=== PATIENT | male | born 1975 | race Caucasian/White ===

== ENCOUNTER 2016-11-26 17:11 | Emergency (ER) | payer SELFPAY ==
[2016-11-26 17:30] VITALS: RESP 18
--- NOTE | 2016-11-26 18:55 | ED ---
General Adult HPI - General Chief complaint: ENT Stated complaint: left ear pain Time Seen by Provider: 11/26/16 18:44 Source: patient, RN notes reviewed Mode of arrival: ambulatory Limitations: no limitations - History of Present Illness Initial comments: This is a 41-year-old male presents with left ear pain 5 days. Patient states the ear pain has progressively gotten worse and he has some diminished hearing to the left side. Patient denies any fever/chills, cough, congestion, sore throat or sick contacts. Patient has been trying orsw-awp-ghwylgm Tylenol and tblp-doq-iqclogu eardrops but this has not helped his symptoms. Patient also complains of some mild dizziness and nausea that started today at work along with the ear pain. Patient denies any recent fever, chills, shortness breath, chest pain, abdominal pain, nausea/vomiting/diarrhea, back pain, numbness, tingling, hematuria, headache, or visual changes, or any other complaints. - Related Data Previous Rx's Medication Instructions Recorded Amoxicillin 1,000 mg PO Q8H 7 Days 11/26/16 Allergies Allergy/AdvReac Type Severity Reaction Status Date / Time No Known Allergies Allergy Verified 11/26/16 18:44 Review of Systems ROS Statement: Those systems with pertinent positive or pertinent negative responses have been documented in the HPI. ROS Other: All systems not noted in ROS Statement are negative. Past Medical History Past Medical History: No Reported History History of Any Multi-Drug Resistant Organisms: None Reported Past Surgical History: Hernia Repair, Orthopedic Surgery Past Psychological History: No Psychological Hx Reported Smoking Status: Never smoker Past Alcohol Use History: None Reported Past Drug Use History: None Reported General Exam - General Exam Comments Initial Comments: General: The patient is awake and alert, in no distress, and does not appear acutely ill. Eye: Pupils are equal, round and reactive to light, extra-ocular movements are intact. No nystagmus. There is normal conjunctiva bilaterally. No signs of icterus. Ears: Left tympanic membrane erythematous and dull consistent with otitis media. Right tympanic membrane pink and pearly with intact cone of light. Normal external ear canals Nose: Nasal turbinates pink and moist Mouth and throat: There are moist mucous membranes and no oral lesions. Neck: The neck is supple, there is no tenderness or JVD. Cardiovascular: There is a regular rate and rhythm. No murmur, rub or gallop is appreciated. Respiratory: Lungs are clear to auscultation, respirations are non-labored, breath sounds are equal. No wheezes, stridor, rales, or rhonchi. Musculoskeletal: Normal ROM, no tenderness. Strength 5/5. Sensation intact. Radial pulses equal bilaterally 2+. Neurological: A&O x 3. CN II-XII intact, There are no obvious motor or sensory deficits. Coordination appears grossly intact. Speech is normal. Skin: Skin is warm and dry and no rashes or lesions are noted. Psychiatric: Cooperative, appropriate mood & affect, normal judgment. Limitations: no limitations Course Vital Signs 11/26/16 17:28 Temperature 97.8 F Pulse Rate 63 Respiratory 18 Rate Blood Pressure 143/78 O2 Sat by Pulse 98 Oximetry Medical Decision Making - Medical Decision Making This Is a 41-year-old male presents with left ear pain 5 days. On physical exam Left tympanic membrane erythematous and dull consistent with otitis media. Right tympanic membrane pink and pearly with intact cone of light. Normal external ear canals. Patient is afebrile in the EC. I discussed the patient will be given a course of amoxicillin for otitis media. Discussed that his hearing should improve as the infection improves. I discussed close follow-up with his primary care physician. I discussed return parameters. I discussed continued use of Tylenol or Motrin as needed for any pain or fever symptoms. Patient was offered a prescription for Zofran for nausea but patient refused this.Discussed that patient should follow up with PCP in one to 2 days or return to the EC for any worsening symptoms or for any further concerns. E butterfield and who was also present in the room where receptive to this plan and patient will be discharged home. Disposition Clinical Impression: Otitis media Disposition: HOME SELF-CARE Condition: Good Instructions: Otitis Media (ED) Additional Instructions: Please finish entire course of antibiotics. Please continue use of Tylenol or Motrin as needed for any pain or fever symptoms. Please use medication as discussed. Please follow-up with family doctor in the next 2 days of symptoms have not improved. Please return to emergency room if the symptoms increase or worsen or for any other concerns. Prescriptions: Amoxicillin 1,000 mg PO Q8H 7 Days Referrals: None,Stated [Primary Care Provider] - 1-2 days Sylvie Garcia MD [REFERRING] - 1-2 days Hedy Feliz MD [STAFF PHYSICIAN] - 1-2 days Alfa Mcmahon III, MD [STAFF PHYSICIAN] - 1-2 days Time of Disposition: 18:53
[2016-11-26 19:09] VITALS: BP 147/89; PULSE 76; TEMP 98.3
== END 2016-11-26 19:05 | disposition home or self-care (01) ==
LOC: EC 17:11
DX: H66.92 Otitis media, unspecified, left ear (principal)
CPT/HCPCS: 99283

== ENCOUNTER 2017-12-24 18:24 | Emergency (ER) | payer SELFPAY ==
[2017-12-24] MEDS ORDERED: ACETAMINOPHEN TAB 325 MG TAB PO STA (19:15)
[2017-12-24] MEDS ORDERED: IBUPROFEN 600 MG TAB PO STA (19:15)
[2017-12-24 19:17] VITALS: RESP 18
[2017-12-24] MEDS ORDERED: DIPH,PERTUS(ACELL)TETVAC-LF 0.5 ML VIAL IM ONE (19:17)
--- NOTE | 2017-12-24 19:49 | XR ---
EXAMINATION TYPE: XR knee complete LT DATE OF EXAM: 12/24/2017 COMPARISON: NONE HISTORY: Knee pain TECHNIQUE: 3 views FINDINGS: I see no fracture nor dislocation. Joint spaces are normal. There is evidence of a mild kne e joint effusion. IMPRESSION: No fracture seen. Knee joint effusion.
--- NOTE | 2017-12-24 19:52 | ED ---
Fall HPI - General Stated Complaint: knee injury Time Seen by Provider: 12/24/17 19:09 Source: patient Mode of arrival: ambulatory - History of Present Illness Initial Comments: 42-year-old male patient percents to the emergency department today for complaints of left knee pain and swelling. Patient states Saturday evening he was walking up into a motorcycle trailer when he fell twisting and landing on his knee. He states that he has been having significant pain since. States that he is barely able to put pressure on it without causing significant pain. States that he has a lot of swelling to the lateral aspect of the knee. He states he has injured the knee in the past. He denies any previous surgeries. He denies hitting his head or losing consciousness with the fall. He states he is having some tingling in his toes with this. Patient denies any headache, neck pain, back pain, chest pain, shortness of breath, dizziness, weakness, abdominal pain, nausea, vomiting, or difficulties with bowel movements or urination. - Related Data Home Medications Medication Instructions Recorded Confirmed Aspirin/Acetaminophen/Caffeine 2 tab PO DAILY PRN 12/24/17 12/24/17 [Excedrin Extra Strength Caplet] Previous Rx's Medication Instructions Recorded Ibuprofen [Motrin] 600 mg PO Q8HR PRN #30 tab 12/24/17 Allergies Allergy/AdvReac Type Severity Reaction Status Date / Time No Known Allergies Allergy Verified 12/24/17 19:39 Review of Systems ROS Statement: Those systems with pertinent positive or pertinent negative responses have been documented in the HPI. ROS Other: All systems not noted in ROS Statement are negative. Past Medical History Past Medical History: No Reported History History of Any Multi-Drug Resistant Organisms: None Reported Past Surgical History: Hernia Repair, Orthopedic Surgery Past Psychological History: No Psychological Hx Reported Smoking Status: Never smoker Past Alcohol Use History: None Reported Past Drug Use History: None Reported General Exam Limitations: no limitations General appearance: alert, in no apparent distress, other (This is a well- developed, well-nourished adult male patient in no acute distress. Vital signs upon presentation are temperature 98.5F, pulse 91, respirations 18, blood pressure 146/89, pulse ox 97% on room air.) Eye exam: Present: normal appearance, PERRL, EOMI. Absent: scleral icterus, conjunctival injection, periorbital swelling ENT exam: Present: normal exam, normal oropharynx, mucous membranes moist Respiratory exam: Present: normal lung sounds bilaterally. Absent: respiratory distress, wheezes, rales, rhonchi, stridor Cardiovascular Exam: Present: regular rate, normal rhythm, normal heart sounds. Absent: systolic murmur, diastolic murmur, rubs, gallop, clicks Extremities exam: Present: full ROM (Patient exhibits full range of motion of the knee, full flexion and full extension however reports increased pain with both), tenderness (Tenderness over the lateral aspect of the left knee.), normal capillary refill, joint swelling (Left knee), other (Patient has significant swelling noted to the left knee especially the lateral aspect. Neurovascular status is intact. Skin is pink, warm, and dry. Cap refills less than 3 seconds. Pedal and Post tibial pulses are 2+ and equal bilaterally.). Absent: normal inspection, pedal edema, calf tenderness Neurological exam: Present: alert, oriented X3, CN II-XII intact Psychiatric exam: Present: normal affect, normal mood Skin exam: Present: warm, dry, intact, normal color. Absent: rash Course Vital Signs 12/24/17 12/24/17 19:14 20:49 Temperature 98.5 F 99 F Pulse Rate 91 85 Respiratory 18 18 Rate Blood Pressure 146/89 137/85 O2 Sat by Pulse 97 98 Oximetry Medical Decision Making - Medical Decision Making 42-year-old male patient presented to the emergency department today for evaluation of left knee pain and swelling. Physical examination did slow swelling to the left knee especially of the left lateral area. Patient did have patellar tenderness and left lateral knee tenderness. He did not have pain with valgus and varus maneuver. Patient is neurovascularly intact. Distal pulses are intact. We did obtain x-ray of the knee 3 views as well as sunrise view. There are negative for any acute fracture or dislocation. We did place patient in an Josemanuel wrap to assist with swelling. He is instructed to take Tylenol Motrin for pain control. Instructed to follow-up with orthopedic physician for further evaluation. He is instructed to return here immediately for any new, worsening, or concerning symptoms. He verbalizes understanding and agrees with this plan. - Radiology Data Radiology results: report reviewed, image reviewed 3 views of the left knee are obtained and show no fracture nor dislocation. Joint spaces are normal. There is evidence of a mild knee joint effusion. Impression by Dr. Almaraz shows no fracture seen. Knee joint effusion. Single view of the left knee was performed. Findings show a single sunrise view of the left knee shows no evidence of patellar fracture. Patellofemoral joint space normal. Impression by Dr. Almaraz shows normal limited exam of the patella. Disposition Clinical Impression: Left knee injury, Knee effusion, left Disposition: HOME SELF-CARE Condition: Good Instructions: Swollen Knee Joint (ED), Knee Pain (ED) Additional Instructions: Follow-up with orthopedics for further evaluation of your knee injury. Use Josemanuel wrap for comfort and support. Take medications as needed for pain control. Follow-up with your primary care physician for recheck in 1-2 days. Return here immediately for any new, worsening, or concerning symptoms. Prescriptions: Ibuprofen [Motrin] 600 mg PO Q8HR PRN #30 tab PRN Reason: Pain Referrals: None,Stated [Primary Care Provider] - 1-2 days Time of Disposition: 20:43
--- NOTE | 2017-12-24 20:34 | XR ---
EXAMINATION TYPE: XR knee limited LT DATE OF EXAM: 12/24/2017 COMPARISON: NONE HISTORY: Pain TECHNIQUE: Single view FINDINGS: A single sunrise view of the left knee shows no evidence of patella fracture. Patellofemora l joint space is normal. IMPRESSION: Normal limited exam of the patella.
[2017-12-24 20:51] VITALS: BP 137/85; PULSE 85; TEMP 99
== END 2017-12-24 20:49 | disposition home or self-care (01) ==
LOC: EC 18:24
DX: S89.92XA Unspecified injury of left lower leg, initial encounter (principal); M25.462 Effusion, left knee; Z23 Encounter for immunization; W01.0XXA Fall on same level from slipping, tripping and stumbling without subsequent striking against object, initial encounter; Y93.01 Activity, walking, marching and hiking
CPT/HCPCS: 90471; 90715; 99283

== ENCOUNTER 2019-01-30 06:01 | Emergency (ER) | payer OTHER ==
[2019-01-30 06:11] VITALS: TEMP 98.1
[2019-01-30] MEDS ORDERED: SODIUM CHLORIDE 0.9% 2,000 ML IV STA (06:15)
[2019-01-30] MEDS ORDERED: KETOROLAC 30 MG/ML 1 ML VIAL IVP STA (06:16)
[2019-01-30] MEDS ORDERED: diphenhydrAMINE 50 MG/ML 1 ML VIAL IVP STA (06:16)
[2019-01-30] MEDS ORDERED: METOCLOPRAMIDE 5 MG/ML 2 ML VIAL IVP STA (06:16)
--- NOTE | 2019-01-30 06:17 | ED ---
Headache HPI - General Chief Complaint: Headache Stated Complaint: Flu,nose bleed, headache Time Seen by Provider: 01/30/19 06:15 Mode of arrival: ambulatory Limitations: no limitations - History of Present Illness Initial Comments: Family is a pleasant 43-year-old gentleman who presents to emergency department this morning for evaluation of headache and generalized malaise. Patient reports that for the past week he's been very and satting intermittent fevers, chills, body aches, nonproductive cough concerned he may have the flu. He states that he has also had a couple unprovoked nosebleeds which is atypical for him. He states he does not have a humidifier anything in the home. He states that this morning he woke up and he felt like he had somewhat of a headache and just felt worn down which prompted him to come to the ER for further evaluation. - Related Data Home Medications Medication Instructions Recorded Confirmed Aspirin/Acetaminophen/Caffeine 2 tab PO DAILY PRN 12/24/17 12/24/17 [Excedrin Extra Strength Caplet] Previous Rx's Medication Instructions Recorded Ibuprofen [Motrin] 600 mg PO Q8HR PRN #30 tab 12/24/17 Allergies Allergy/AdvReac Type Severity Reaction Status Date / Time maple AdvReac Rash/Hives Uncoded 01/30/19 06:12 Review of Systems ROS Statement: Those systems with pertinent positive or pertinent negative responses have been documented in the HPI. ROS Other: All systems not noted in ROS Statement are negative. Past Medical History Past Medical History: No Reported History History of Any Multi-Drug Resistant Organisms: None Reported Past Surgical History: Hernia Repair, Orthopedic Surgery Past Psychological History: Anxiety, Depression Smoking Status: Never smoker Past Alcohol Use History: None Reported Past Drug Use History: None Reported General Exam - General Exam Comments Initial Comments: Physical Exam GENERAL: Patient is well-developed and well-nourished. Patient appears dehydrated on exam HENT: Normocephalic, Atraumatic. EYES: PERRL, EOMI PULMONARY: Unlabored respirations. No audible rales rhonchi or wheezing was noted. CARDIOVASCULAR: There is a regular rate and rhythm without any murmurs gallops or rubs. ABDOMEN: Soft and nontender with normal bowel sounds. SKIN: Skin is clear with no lesions or rashes and otherwise unremarkable. : Deferred NEUROLOGIC: Patient is alert and oriented x3. Moving all extremities spontaneously MUSCULOSKELETAL: Normal extremities with adequate strength and full range of motion. No lower extremity swelling or edema. No calf tenderness. PSYCHIATRIC: Normal psychiatric evaluation. Limitations: no limitations Limitations: no limitations Course Vital Signs 01/30/19 01/30/19 06:09 07:57 Temperature 98.1 F 98.1 F Pulse Rate 76 85 Respiratory 18 16 Rate Blood Pressure 131/105 148/89 O2 Sat by Pulse 97 97 Oximetry Medical Decision Making - Medical Decision Making She was seen and evaluated history is obtained from patient and review of medical record Relatively healthy 43-year-old male flulike illness for 1 week presenting with headache he appears dehydrated and labs and imaging fluids were ordered Labs were unremarkable Influenza is negative Patient was reevaluated after receiving meds and 1 L of IV fluids he reports feeling much better at this time patient's comfortable with the plan for discharge home. All questions pertaining care were answered return parameters were discussed patient was discharged home in stable condition. - Lab Data Result diagrams: 01/30/19 06:45 01/30/19 06:45 Lab Results 01/30/19 01/30/19 01/30/19 Range/Units 06:30 06:45 06:45 WBC 6.1 (3.8-10.6) k/uL RBC 5.14 (4.30-5.90) m/uL Hgb 14.9 (13.0-17.5) gm/dL Hct 42.8 (39.0-53.0) % MCV 83.2 (80.0-100.0) fL MCH 29.1 (25.0-35.0) pg MCHC 34.9 (31.0-37.0) g/dL RDW 14.8 (11.5-15.5) % Plt Count 200 (150-450) k/uL Neutrophils % 67 % Lymphocytes % 22 % Monocytes % 6 % Eosinophils % 3 % Basophils % 1 % Neutrophils # 4.1 (1.3-7.7) k/uL Lymphocytes # 1.4 (1.0-4.8) k/uL Monocytes # 0.3 (0-1.0) k/uL Eosinophils # 0.2 (0-0.7) k/uL Basophils # 0.0 (0-0.2) k/uL Sodium 141 (137-145) mmol/L Potassium 4.2 (3.5-5.1) mmol/L Chloride 108 H (98-107) mmol/L Carbon Dioxide 25 (22-30) mmol/L Anion Gap 8 mmol/L BUN 15 (9-20) mg/dL Creatinine 0.81 (0.66-1.25) mg/dL Est GFR (CKD-EPI)AfAm >90 (>60 ml/min/1.73 sqM) Est GFR (CKD-EPI)NonAf >90 (>60 ml/min/1.73 sqM) Glucose 95 (74-99) mg/dL Calcium 9.2 (8.4-10.2) mg/dL Total Bilirubin 0.7 (0.2-1.3) mg/dL AST 23 (17-59) U/L ALT 31 (21-72) U/L Alkaline Phosphatase 35 L (38-126) U/L Total Protein 7.2 (6.3-8.2) g/dL Albumin 4.1 (3.5-5.0) g/dL Lipase 111 (23-300) U/L Influenza Type A RNA Not Detected (Not Detectd) Influenza Type B (PCR) Not Detected (Not Detectd) Disposition Clinical Impression: Flu-like symptoms, Headache Disposition: HOME SELF-CARE Condition: Stable Instructions (If sedation given, give patient instructions): Sinusitis (ED) Is patient prescribed a controlled substance at d/c from ED?: No Referrals: None,Stated [Primary Care Provider] - 1-2 days
[2019-01-30 06:58] LABS: Basophils % (A) 1 %; Eosinophils # (A) 0.2 k/uL (0-0.7); Eosinophils % (A) 3 %; HCT 42.8 % (39.0-53.0); HGB 14.9 gm/dL (13.0-17.5); Lymphocytes # (A) 1.4 k/uL (1.0-4.8); Lymphocytes % (A) 22 %; MCH 29.1 pg (25.0-35.0); MCHC 34.9 g/dL (31.0-37.0); MCV 83.2 fL (80.0-100.0); Mean Platelet Volume 8.6; Monocytes # (A) 0.3 k/uL (0-1.0); Monocytes % (A) 6 %; Neutrophils # (A) 4.1 k/uL (1.3-7.7); Neutrophils % (A) 67 %; Platelet Count 200 k/uL (150-450); RBC 5.14 m/uL (4.30-5.90); RDW 14.8 % (11.5-15.5); WBC 6.1 k/uL (3.8-10.6)
--- NOTE | 2019-01-30 07:19 | XR ---
EXAMINATION TYPE: XR chest 2V DATE OF EXAM: 01/30/2019 COMPARISON: NONE HISTORY: Pain, flu symptoms TECHNIQUE: Frontal and lateral views of the chest are obtained. FINDINGS: There is no focal air space opacity, pleural effusion, or pneumothorax seen. The cardiac silhouette size is within normal limits. The osseous structures are intact. IMPRESSION: No acute cardiopulmonary process.
[2019-01-30 07:24] LABS: ALT 31 U/L (21-72); AST 23 U/L (17-59); Albumin 4.1 g/dL (3.5-5.0); Alkaline Phosphatase 35 U/L (38-126); Anion Gap 8 mmol/L; Blood Urea Nitrogen 15 mg/dL (9-20); Calcium 9.2 mg/dL (8.4-10.2); Carbon Dioxide 25 mmol/L (22-30); Chloride 108 mmol/L (98-107); Glucose 95 mg/dL (74-99); Lipase 111 U/L (23-300); Potassium 4.2 mmol/L (3.5-5.1); Sodium 141 mmol/L (137-145); Total Bilirubin 0.7 mg/dL (0.2-1.3); Total Protein 7.2 g/dL (6.3-8.2)
[2019-01-30 07:59] VITALS: BP 148/89; PULSE 85; RESP 16
== END 2019-01-30 07:55 | disposition home or self-care (01) ==
LOC: EC 06:01
DX: R51 Headache (principal); R53.81 Other malaise; R05 Cough; R50.9 Fever, unspecified; Z91.048 Other nonmedicinal substance allergy status; Z53.8 Procedure and treatment not carried out for other reasons
CPT/HCPCS: 36415; 80053; 83690; 85025; 87502; 71046; 99284; 96374; 96361; J1885

== ENCOUNTER 2022-04-06 06:20 | Day surgery (SDC) | payer BC, OTHER ==
[2022-04-04 15:42] VITALS: BMI 33.0
[~2022-04-06 06:20] MED LIST: LACTATED RINGERS 1,000 ML IV SCH; LIDOCAINE 1% (10MG/ML) FOR IV START INTRADERMA PRN
[2022-04-06 06:54] VITALS: TEMP 98.1
[2022-04-06] MEDS ORDERED: PROPOFOL 10 MG/ML 20 ML VIAL IV ONE (07:25)
[2022-04-06] MEDS ORDERED: MIDAZOLAM 2 MG/2 ML VIAL ONE (07:25)
[2022-04-06] MEDS ORDERED: fentaNYL (PF) 50 MCG/ML 2 ML AMP ONE (07:25)
[2022-04-06] MEDS ORDERED: LIDOCAINE 2% INJ 20 MG/ML (2 ML VIAL) ONE (07:25)
--- NOTE | 2022-04-06 07:42 | P.PCN ---
Date of Procedure: 04/06/22 Procedure(s) Performed: Brief history: Patient is a pleasant 47-year-old white male scheduled for an elective upper endoscopy as well as colonoscopy as a part of evaluation of intermittent nausea vomiting for the last several years duration. Symptoms typically happen in the evening after dinner. He denies any heartburn. No dysphagia or odynophagia. He is also scheduled for colonoscopy as a part of screening for colorectal neoplasia Procedure performed: Esophagogastroduodenoscopy with biopsy Colonoscopy Preoperative diagnosis: Intermittent nausea vomiting Screening for colorectal neoplasia Anesthesia: MAC Procedure: After informed consent was obtained from the patient was brought into the en doscopy unit and IV sedation was administered by anesthesia under continuous monitoring. Initially upper endoscopy was done. The Olympus GF 160 video endoscope was inserted inserted into the mouth and esophagus intubated without any difficulty and was gradually advanced into the stomach and duodenum and carefully examined. The bulb and second part of the duodenum appeared normal. Biopsies were done from the duodenum to rule out celiac disease. The scope was then withdrawn into the stomach adequately insufflated with air and upon careful examination the antrum had mild mottling of the mucosa in the prepyloric area which was biopsied. The body, cardia and fundus appeared normal. The scope was then withdrawn into the esophagus. The GE junction was located at 40 cm to the incisors. It appeared irregular with no erythema erosions or ulcerations. Rest of the esophagus appeared normal. . Abscesses were done from the distal esophagus. Patient tolerated the procedure well. At this time the patient continued to remain sedation. Initial digital rectal examination was normal. Olympus CF 160 video colonoscope was then inserted into the rectum and gradually advanced to the cecum without any difficulty. Careful examination was performed as the scope was gradually being withdrawn. The prep was excellent. The cecum, ascending colon, transverse colon, descending colon, sigmoid colon and rectum appeared normal. scattered sigmoid diverticulosis. Retroflexion was performed in the rectum and no lesions were noted. Patient tolerated the procedure well. Impression: 1. Upper endoscopy revealed mild antral gastritis and irregular GE junction but no evidence of esophagitis or peptic 2. Colonoscopy was within normal limits with no evidence of colorectal neoplasia. Recommendations: Findings of this examination were discussed with the patient as well as his family. He was advised to follow with the biopsy results. he will be given a trial of Prilosec 20 mg daily to be taken half hour before dinner and follow antireflux measures. He can have a repeat screening colonoscopy in 10 years.
[2022-04-06 08:02] VITALS: BP 127/84; PULSE 74; RESP 15
== END 2022-04-06 08:20 | disposition home or self-care (01) ==
LOC: ORWHC2ENDO 06:20
PROVIDERS: ATTEND Internal Medicine Gastroenterology
DX: Z12.11 Encounter for screening for malignant neoplasm of colon (principal); K57.30 Diverticulosis of large intestine without perforation or abscess without bleeding; K29.50 Unspecified chronic gastritis without bleeding; G43.909 Migraine, unspecified, not intractable, without status migrainosus; Z79.1 Long term (current) use of non-steroidal anti-inflammatories (NSAID); Z79.82 Long term (current) use of aspirin; Z79.899 Other long term (current) drug therapy
CPT/HCPCS: 88305; 43239; J2250; J3010; J2704; J2001; G0121

== ENCOUNTER → 2023-10-29 | Outpatient (CLI) | payer BC, OTHER ==
--- NOTE | 2023-10-29 15:16 | CT ---
EXAMINATION TYPE: CT abdomen pelvis w con CT DLP: 2100 mGycm, Automated exposure control for dose reduction was used. DATE OF EXAM: 10/29/2023 2:44 PM COMPARISON: CLINICAL INDICATION:Male, 48 years old with history of R10.32 LLQ pain; Acute LLQ pain x 5 days. Stat hold and call TECHNIQUE: Axial CT of the abdomen and pelvis. Sagittal and coronal reformats were created on a [employer] workstation. Contrast used:100 mL of Isovue 300 with IV Contrast, (none if empty) Oral contrast used: with Oral Contrast FINDINGS: LOWER CHEST: Minimal dependent atelectasis. No consolidation or effusion. Some scattered tiny lung no dules are suggested. Heart appears mildly enlarged without pericardial effusion. There may be a small sliding hiatal hernia. ABDOMEN LIVER: Unremarkable GALLBLADDER AND BILE DUCTS: Unremarkable gallbladder. No biliary ductal dilatation. PANCREAS: Unremarkable. SPLEEN: Unremarkable. ADRENAL GLANDS: Unremarkable. KIDNEYS AND URETERS: Kidneys enhance symmetrically. No evidence of hydronephrosis or visible renal ca lculus. The ureters are unremarkable. PELVIS BLADDER: Unremarkable REPRODUCTIVE: Unremarkable prostate. ABDOMEN & PELVIS STOMACH AND BOWEL: There is question of possible mild wall thickening of the distal esophagus and pro ximal stomach, versus nondistention. Contrast traverses the stomach and small bowel loops without matias dence of obstruction or significant wall thickening. The appendix appears within normal limits. Cont rast is just reaching the right colon. There is a moderate amount of stool and some gas seen througho ut the colon. Some segments are nondistended/collapsed and not well assessed. There are some scattere d diverticula seen. There is a relatively long segment of sigmoid colon which shows mild generalized wall thickening, which could be due to incomplete distention and/or inflammatory changes. There is qu estionable mild engorgement of the adjacent vasa recta. No definite inflammation clearly centered on a diverticulum. PERITONEUM/RETROPERITONEUM: No evidence of pneumoperitoneum or free fluid. VASCULATURE: Minimal atherosclerotic calcifications are present in the abdominal aorta and its branch es. No evidence of aortic aneurysm. Portal veins are enhancing. Splenic vein is patent. LYMPH NODES: No gross evidence for lymphadenopathy. SOFT TISSUE/ABDOMINAL WALL: Moderate sized fat-containing left inguinal hernia. Small fat-containing umbilical hernia. MUSCULOSKELETAL: No acute osseous abnormalities. Mild disc degeneration changes are present throughou t the thoracolumbar spine. IMPRESSION: 1. Suspected segment of wall thickening in the sigmoid colon, which may reflect a mild colitis. 2. No evidence of obstruction or free air. Appendix appears within normal limits. 3. Questionable mild wall thickening of the distal esophagus and proximal stomach, consider nonspeci fic esophagitis versus incomplete distention.
== END | disposition home or self-care (01) ==
LOC: RADCTMAIN 12:37
PROVIDERS: ATTEND Family Medicine
DX: R10.32 Left lower quadrant pain (principal); K63.89 Other specified diseases of intestine
CPT/HCPCS: 74177; Q9967

== ENCOUNTER → 2023-11-22 | Outpatient (CLI) | payer BC ==
--- NOTE | 2023-11-22 15:04 | XR ---
EXAMINATION TYPE: XR orbit detect foreign body DATE OF EXAM: 11/22/2023 2:43 PM CLINICAL INDICATION:Male, 48 years old with history of M43.16 SPONDYLOLISTHESIS, LUMBAR REGION; PHH Rule out foreign body. COMPARISON: None TECHNIQUE: 3 views the orbits frontal, lateral and Ortiz. FINDINGS: Radiographic evaluation of the orbits fail to demonstrate evidence of an orbital fracture. There is n o radiopaque foreign body identified. The adjacent paranasal sinuses are well aerated an without evid ence of intra-cavitary fluid accumulation. IMPRESSION: No radiographic evidence of radiopaque foreign body.
== END | disposition home or self-care (01) ==
LOC: RADXRMAIN 14:17
PROVIDERS: ATTEND Nurse Practitioner
DX: M43.16 Spondylolisthesis, lumbar region (principal)
CPT/HCPCS: 70030

== ENCOUNTER → 2023-11-23 | Outpatient (CLI) | payer BC ==
--- NOTE | 2023-11-23 10:05 | MR ---
EXAMINATION TYPE: MR lumbar spine wo con DATE OF EXAM: 11/23/2023 COMPARISON: None HISTORY: Spinal canal stenosis CONTRAST: 0 mL intravenous Gadavist. TECHNIQUE: Multiplanar, multisequence images of the lumbar spine were acquired. FINDINGS: L5-S1: Mild disc bulge is present with anterior epidural space contacting this may be slightly greate r in the left paracentral region into the foramen. Moderate bilateral foraminal narrowing is present slightly greater on the left. The AP spinal canal stenosis. L4-L5: Facet hypertrophy and ligamentum flavum laxity has posterior lateral thecal sac impression. Br oad-based disc bulging is present. This is contributing to severe spinal canal stenosis. Mild left fo raminal and moderate right narrowing is present. L3-L4: No significant disc bulge or disc herniation. No spinal canal stenosis. No foraminal stenosi s. L2-L3: No significant disc bulge or disc herniation. No spinal canal stenosis. No foraminal stenosi s. L1-L2: No significant disc bulge or disc herniation. No spinal canal stenosis. No foraminal stenosi s. T12-L1: No significant disc bulge or disc herniation. No spinal canal stenosis. No foraminal stenos is. IMPRESSION: 1. Severe spinal canal stenosis secondary to broad-based disc bulge and facet hypertrophy and ligamen will flavum laxity at the L4-5 level. 2. Broad-based disc bulge contributing to foraminal narrowing L5-S1
== END | disposition home or self-care (01) ==
LOC: RADMRIMAIN 08:52
PROVIDERS: ATTEND Family Medicine
DX: M51.37 Other intervertebral disc degeneration, lumbosacral region (principal); M99.63 Osseous and subluxation stenosis of intervertebral foramina of lumbar region; M99.64 Osseous and subluxation stenosis of intervertebral foramina of sacral region; M47.817 Spondylosis without myelopathy or radiculopathy, lumbosacral region; M48.061 Spinal stenosis, lumbar region without neurogenic claudication
CPT/HCPCS: 72148

== ENCOUNTER 2024-02-09 12:31 | Emergency (ER) | payer BC ==
--- NOTE | 2024-02-09 12:49 | ED ---
General Adult HPI - General Source: patient, family, RN notes reviewed Mode of arrival: wheelchair Limitations: physical limitation <Marla Hahn - Last Filed: 02/09/24 12:48> <Robby Dennis - Last Filed: 02/09/24 18:02> - General Stated complaint: Post Op Time Seen by Provider: 02/09/24 12:48 - History of Present Illness Initial comments: Quick note: 48-year-old male presenting to the ER with a chief complaint of back pain and fever. Patient recently underwent back surgery in [place]. He also is reporting right leg numbness. reports he had a fever of 100.1F yesterday. She also states he has not been acting appropriately. Increased output in drain. (Marla Hahn) 48-year-old male presenting with chief complaint of right leg swelling. Patient is postop lumbar laminectomy at outside hospital. Patient has YARELY drain in the lumbar spine. This has been producing serosanguineous fluid which is being monitored closely by the patient and his . Patient is concerned about DVT. He is also had some nausea and lightheadedness. (Robby Dennis) - Related Data Home Medications Medication Instructions Recorded Confirmed Aspirin/Acetaminophen/Caffeine 2 tab PO DAILY PRN 12/24/17 04/06/22 [Excedrin Extra Strength Caplet] ALPRAZolam [Xanax] 0.5 mg PO TID PRN 04/04/22 04/06/22 Dextroamphetamine/Amphetamine 20 mg PO BID 04/04/22 04/06/22 [Adderall] Ibuprofen [Motrin] 800 mg PO Q8HR PRN 04/04/22 04/06/22 Allergies Allergy/AdvReac Type Severity Reaction Status Date / Time DUST Allergy Rash/Hives Uncoded 02/09/24 12:57 maple AdvReac Rash/Hives Uncoded 02/09/24 12:57 Review of Systems ROS Other: All systems not noted in ROS Statement are negative. <Marla Hahn - Last Filed: 02/09/24 12:48> ROS Other: All systems not noted in ROS Statement are negative. <Robby Dennis - Last Filed: 02/09/24 18:02> ROS Statement: Those systems with pertinent positive or pertinent negative responses have been documented in the HPI. Past Medical History Past Medical History: Osteoarthritis (OA) Additional Past Medical History / Comment(s): MIGRAINE HEADACHE History of Any Multi-Drug Resistant Organisms: None Reported Past Surgical History: Hernia Repair, Orthopedic Surgery Additional Past Surgical History / Comment(s): RIGHT KNEE ARTHROSCOPIC , VASECTOMY Past Anesthesia/Blood Transfusion Reactions: Previous Problems w/ Anesthesia Additional Past Anesthesia/Blood Transfusion Reaction / Comment(s): "TOOK MORE TO PUT HIM TO SLEEP" Smoking Status: Never smoker - Past Family History Mother Family Medical History: Cancer, Deep Vein Thrombosis (DVT) <Marla Hahn - Last Filed: 02/09/24 12:48> General Exam <Marla Hahn - Last Filed: 02/09/24 12:48> General appearance: alert, in no apparent distress Head exam: Present: atraumatic, normocephalic Eye exam: Present: normal appearance, PERRL Neck exam: Present: normal inspection Respiratory exam: Present: normal lung sounds bilaterally. Absent: respiratory distress, wheezes Cardiovascular Exam: Present: regular rate, normal rhythm GI/Abdominal exam: Present: soft. Absent: distended, tenderness, guarding, rebound Extremities exam: Present: normal inspection. Absent: tenderness Neurological exam: Present: alert, oriented X3 Psychiatric exam: Present: normal affect, normal mood Skin exam: Present: other (Lumbar incision with YARELY drain, dressing has serosanguineous fluid, no purulence.) <AntonioRobby yanes Travis - Last Filed: 02/09/24 18:02> - General Exam Comments Initial Comments: Visual Physical Exam Vital signs reviewed General: Pale and mildly diaphoretic Head: Normocephalic, atraumatic Eyes: PERRLA, EOMI ENT: Airway patent Chest: Nonlabored breathing Skin: No visual rash, normal skin tone Neuro: Alert and oriented 3 Musculoskeletal: No gross abnormalities (Marla Hahn) Course Vital Signs 02/09/24 02/09/24 12:53 15:21 Temperature 97.8 F 97.9 F Pulse Rate 101 H 90 Respiratory 18 18 Rate Blood Pressure 141/90 140/97 O2 Sat by Pulse 96 99 Oximetry Medical Decision Making <Marla Hahn - Last Filed: 02/09/24 12:48> - Lab Data Result diagrams: 02/09/24 13:15 02/09/24 13:15 <Robby Dennis N - Last Filed: 02/09/24 18:02> - Medical Decision Making I performed the quick note portion of this chart. Electronically signed by Marla Hahn PA-C (Marla Hahn) Was pt. sent in by a medical professional or institution ([facility], [facility], urgent care, hospital, or fdc...) When possible be specific @ -No Did you speak to anyone other than the patient for history (EMS, parent, family, police, friend...)? What history was obtained from this source @ -No Did you review nursing and triage notes (agree or disagree)? Why? @ -I reviewed and agree with nursing and triage notes Were old charts reviewed (outside hosp., previous admission, EMS record, old EKG, old radiological studies, urgent care reports/EKG's, fdc records)? Report findings @ -No old charts were reviewed Differential Diagnosis differential Dizziness: Benign paroxysmal positional Vertigo, Menieres disease, otitis media, acoustic neuroma, vertebrobasilar insufficiency, cerebellar stroke, encephalitis, hypovolemic, arrhythmia, coronary artery syndrome, anemia, this is not meant to be an all-inclusive list EKG interpreted by me (3pts min.). @ -As above X-rays interpreted by me (1pt min.). @ -None done CT interpreted by me (1pt min.). @ -None done U/S interpreted by me (1pt. min.). @ -Ultrasound of the right leg negative for DVT. What testing was considered but not performed or refused? (CT, X-rays, U/S, labs)? Why? @ -None What meds were considered but not given or refused? Why? @ -None Did you discuss the management of the patient with other professionals (professionals i.e. [facility], [facility] [facility], lab, RT, psych nurse, group social worker, check writing machine operator, teacher, detention officer, gearcase assembler)? Give summary @ -No Was smoking cessation discussed for >3mins.? @ -No Was critical care preformed (if so, how long)? @ -No Were there social determinants of health that impacted care today? How? (Homelessness, low income, unemployed, alcoholism, drug addiction, transportation, low edu. Level, literacy, decrease access to med. care, nursing home, rehab)? @ -No Was there de-escalation of care discussed even if they declined (Discuss DNR or withdrawal of care, Hospice)? DNR status @ -No What co-morbidities impacted this encounter? (DM, HTN, Smoking, COPD, CAD, Cancer, CVA, ARF, Chemo, Hep., AIDS, mental health diagnosis, sleep apnea, morbid obesity)? @ -None Was patient admitted / discharged? Hospital course, mention meds given and route, prescriptions, significant lab abnormalities, going to OR and other pertinent info. @48-year-old male recent lumbar laminectomy with right leg swelling concern for DVT, ultrasound negative. Patient had felt dizzy, I did obtain laboratory testing which showed a mild anemia, no leukocytosis, normal electrolytes. I do feel this patient is stable for discharge with close follow-up with his surgeon. Undiagnosed new problem with uncertain prognosis? @ -No Drug Therapy requiring intensive monitoring for toxicity (Heparin, Nitro, Insulin, Cardizem)? @ -No Were any procedures done? @ -No Diagnosis/symptom? @Lightheaded, postoperative swelling Acute, or Chronic, or Acute on Chronic? @ -Default Uncomplicated (without systemic symptoms) or Complicated (systemic symptoms)? @ -Default Side effects of treatment? @ -No Exacerbation, Progression, or Severe Exacerbation? @ -No Poses a threat to life or bodily function? How? (Chest pain, USA, ME, pneumonia, PE, COPD, DKA, ARF, appy, cholecystitis, CVA, Diverticulitis, Homicidal, Suicidal, threat to staff... and all critical care pts) @ -No (Robby Dennis) - Lab Data Lab Results 02/09/24 02/09/24 02/09/24 Range/Units 13:15 13:15 13:15 WBC 8.8 (3.8-10.6) k/uL RBC 4.22 L (4.30-5.90) m/uL Hgb 12.6 L (13.0-17.5) gm/dL Hct 37.0 L (39.0-53.0) % MCV 87.7 (80.0-100.0) fL MCH 29.8 (25.0-35.0) pg MCHC 34.0 (31.0-37.0) g/dL RDW 13.8 (11.5-15.5) % Plt Count 251 (150-450) k/uL MPV 7.7 Neutrophils % 81 % Lymphocytes % 11 % Monocytes % 5 % Eosinophils % 2 % Basophils % 0 % Neutrophils # 7.1 (1.3-7.7) k/uL Lymphocytes # 1.0 (1.0-4.8) k/uL Monocytes # 0.4 (0-1.0) k/uL Eosinophils # 0.1 (0-0.7) k/uL Basophils # 0.0 (0-0.2) k/uL Sodium 135 L (137-145) mmol/L Potassium 3.9 (3.5-5.1) mmol/L Chloride 100 (98-107) mmol/L Carbon Dioxide 27 (22-30) mmol/L Anion Gap 8 mmol/L BUN 13 (9-20) mg/dL Creatinine 0.73 (0.66-1.25) mg/dL Est GFR (CKD-EPI)AfAm >90 (>60 ml/min/1.73 sqM) Est GFR (CKD-EPI)NonAf >90 (>60 ml/min/1.73 sqM) Glucose 103 H (74-99) mg/dL Plasma Lactic Acid Bret 1.2 (0.7-2.0) mmol/L Calcium 8.7 (8.4-10.2) mg/dL Total Bilirubin 0.8 (0.2-1.3) mg/dL AST 44 (17-59) U/L ALT 34 (4-49) U/L Alkaline Phosphatase 38 (38-126) U/L Total Protein 6.5 (6.3-8.2) g/dL Albumin 3.6 (3.5-5.0) g/dL Disposition <Marla Hahn - Last Filed: 02/09/24 12:48> Is patient prescribed a controlled substance at d/c from ED?: No Time of Disposition: 18:02 <Robby Dennis - Last Filed: 02/09/24 18:02> Clinical Impression: Dehydration Disposition: HOME SELF-CARE Condition: Stable Instructions (If sedation given, give patient instructions): Dizziness (ED) Additional Instructions: Please follow closely with your surgeon Referrals: Carrie An NPC [Primary Care Provider] - 1-2 days
[2024-02-09 13:21] LABS: Basophils % (A) 0 %; Eosinophils # (A) 0.1 k/uL (0-0.7); Eosinophils % (A) 2 %; HGB 12.6 gm/dL (13.0-17.5); Lymphocytes % (A) 11 %; MCH 29.8 pg (25.0-35.0); MCV 87.7 fL (80.0-100.0); Mean Platelet Volume 7.7; Monocytes # (A) 0.4 k/uL (0-1.0); Monocytes % (A) 5 %; Neutrophils # (A) 7.1 k/uL (1.3-7.7); Neutrophils % (A) 81 %; Platelet Count 251 k/uL (150-450); RBC 4.22 m/uL (4.30-5.90); RDW 13.8 % (11.5-15.5); WBC 8.8 k/uL (3.8-10.6)
[2024-02-09 13:23] VITALS: RESP 18
[2024-02-09 13:32] LABS: ALT 34 U/L (4-49); AST 44 U/L (17-59); African American GFR (CKD) >90 (>60 ml/min/1.73 sqM); Albumin 3.6 g/dL (3.5-5.0); Alkaline Phosphatase 38 U/L (38-126); Anion Gap 8 mmol/L; Blood Urea Nitrogen 13 mg/dL (9-20); Calcium 8.7 mg/dL (8.4-10.2); Carbon Dioxide 27 mmol/L (22-30); Chloride 100 mmol/L (98-107); Glucose 103 mg/dL (74-99); Non-African American GFR(CKD) >90 (>60 ml/min/1.73 sqM); Potassium 3.9 mmol/L (3.5-5.1); Sodium 135 mmol/L (137-145); Total Bilirubin 0.8 mg/dL (0.2-1.3); Total Protein 6.5 g/dL (6.3-8.2)
[2024-02-09] MEDS: SODIUM CHLORIDE 0.9% 1,000 ML IV ONE (15:55)
[2024-02-09] MEDS: ONDANSETRON 4 MG/2 ML VIAL IVP STA (15:55)
[2024-02-09 16:02] VITALS: TEMP 97.9
--- NOTE | 2024-02-09 17:32 | US ---
EXAMINATION TYPE: US venous doppler duplex LE RT DATE OF EXAM: 02/09/2024 5:14 PM COMPARISON: NONE CLINICAL INDICATION: Male, 48 years old with history of swelling; pain SIDE PERFORMED: Right TECHNIQUE: The lower extremity deep venous system is examined utilizing real time linear array sonog rickie with graded compression, doppler sonography and color-flow sonography. VESSELS IMAGED: Common Femoral Vein Deep Femoral Vein Greater Saphenous Vein * Femoral Vein Popliteal Vein Small Saphenous Vein * Proximal Calf Veins (* superficial vessels) Grayscale, color doppler, spectral doppler imaging performed of the deep veins of the lower extremiti es. There is normal flow, compressibility, vascular waveforms Right Leg: Negative for DVT IMPRESSION: No evidence of deep venous thrombosis of the right lower extremity.
[2024-02-09] MEDS: ONDANSETRON 4 MG ODT STARTER PACK 2 TAB BTL PO STA (18:35)
[2024-02-09 18:40] VITALS: BP 132/101; PULSE 104
== END 2024-02-09 18:40 | disposition home or self-care (01) ==
LOC: EC 12:31
DX: T81.89XA Other complications of procedures, not elsewhere classified, initial encounter (principal); E86.0 Dehydration; R42 Dizziness and giddiness; M79.89 Other specified soft tissue disorders; Z91.018 Allergy to other foods; Z91.09 Other allergy status, other than to drugs and biological substances
CPT/HCPCS: 99284; 96374; 96361; 36415; 80053; 83605; 85025; 87040; 93971; J2405; S0119

== ENCOUNTER → 2024-04-16 | Outpatient (CLI) | payer BC, OTHER ==
--- NOTE | 2024-04-16 14:04 | XR ---
EXAMINATION TYPE: XR thoracic spine 2V DATE OF EXAM: 04/16/2024 CLINICAL HISTORY: pain TECHNIQUE: Frontal, lateral, and swimmer's view of thoracic spine are obtained. COMPARISON: None. FINDINGS: Thoracic spine show satisfactory alignment without evidence of acute fracture or dislocatio n. Vertebral body heights are preserved. Mild degenerative changes disc space narrowing. Visualize d ribs are unremarkable. IMPRESSION: No acute fracture or dislocation is seen in the thoracic spine. ICD 10 NO FRACTURE, INIT IAL EVALUATION
--- NOTE | 2024-04-16 14:06 | XR ---
EXAMINATION TYPE: XR lumbar spine 2 or 3V DATE OF EXAM: 04/16/2024 CLINICAL HISTORY: pain TECHNIQUE: Three views of the lumbar spine are submitted. COMPARISON: None. FINDINGS: There are 5 lumbar type vertebral bodies identified. The lumbar spine shows satisfactory alignment w ithout evidence of acute fracture or dislocation. Vertebral body heights are within normal limits. Postoperative changes of the lumbar laminectomy at L4-[address] Pedicular screws a re noted. Postoperative alignment is near-anatomic. [id number] degenerative narrowing at L5-S1. The overlying soft tissue appears unremarkable. IMPRESSION: Appropriate postoperative alignment.
== END | disposition home or self-care (01) ==
LOC: RADXRYALE 13:40
PROVIDERS: ATTEND Nurse Practitioner
DX: M54.16 Radiculopathy, lumbar region (principal)
CPT/HCPCS: 72070; 72100

== ENCOUNTER → 2024-05-05 | Outpatient (CLI) | payer BC, OTHER ==
--- NOTE | 2024-05-05 15:39 | XR ---
EXAMINATION TYPE: XR orbit detect foreign body DATE OF EXAM: 05/05/2024 3:32 PM CLINICAL INDICATION:Male, 49 years old with history of T15. 90XA FOREIGN BODY ON EXTERNAL EYE, PART U NSP,; H Rule out foreign body. COMPARISON: None TECHNIQUE: XR orbit detect foreign body views the orbits frontal, lateral and Ortiz. FINDINGS: Radiographic evaluation of the orbits fail to demonstrate evidence of an orbital fracture. There is n o radiopaque foreign body identified. The adjacent paranasal sinuses are well aerated an without evid ence of intra-cavitary fluid accumulation. IMPRESSION: No radiographic evidence of radiopaque foreign body.
== END | disposition home or self-care (01) ==
LOC: RADXRMAIN 14:53
PROVIDERS: ATTEND Family Medicine
DX: M48.061 Spinal stenosis, lumbar region without neurogenic claudication (principal); T15.90XA Foreign body on external eye, part unspecified, unspecified eye, initial encounter
CPT/HCPCS: 70030

== ENCOUNTER → 2024-05-06 | Outpatient (CLI) | payer BC, OTHER ==
--- NOTE | 2024-05-15 10:51 | MR ---
EXAMINATION TYPE: MR lumbar spine wo con DATE OF EXAM: 05/06/2024 1:56 PM CLINICAL INDICATION:Male, 49 years old with history of M48.061 SPINAL STENOSIS, LUMBAR REGION WITHOUT STACIA; PHH, Low back pain into aury lower extremities COMPARISON: None TECHNIQUE: Multi planar, multi sequence imaging was performed utilizing: T1-weighted, T2-weighted, a nd turbo inversion recovery imaging of the lumbar spine. IV Contrast: cc . (None if empty) FINDINGS: Alignment: The lumbar vertebral bodies have preserved heights and alignment. Cord: The conus medullaris and the distal spinal cord appear unremarkable with regards to their signa l intensity and morphology. Bones/Discs: Postsurgical changes at L4 and L5. Susceptibility artifact is present. Minimal disc dege neration with disc space narrowing, osteophytes and Modic endplate changes. Intervertebral disc signa l is maintained. No abnormal inversion recovery signal to suggest bony edema. T12-L1: No evidence of significant spinal canal stenosis or neural foraminal stenosis. L1-L2: No evidence of significant spinal canal stenosis or neural foraminal stenosis. L2-L3: No evidence of significant spinal canal stenosis or neural foraminal stenosis. L3-L4: Disc bulge and facet joint arthropathy result in mild spinal canal and mild bilateral neural f oraminal stenosis. L4-L5: Susceptibility artifact limits evaluation at this level. The spinal canal and neural foramen a ppear patent. L5-S1: The disc has a rounded posterior morphology without significant spinal canal stenosis. Facet j oint arthropathy with mild to moderate bilateral neural foraminal stenosis. No significant spinal canal or neural foraminal stenosis in the remainder of the visualized levels. Other findings: None. IMPRESSION: 1. No definitive evidence of disc herniation or significant spinal canal stenosis. 2. Postsurgical changes with mild disc degeneration with associated osteoarthritic changes. No signi ficant neural foraminal or spinal canal stenosis.
== END | disposition home or self-care (01) ==
LOC: RADMRIMAIN 13:18
PROVIDERS: ATTEND Family Medicine
DX: M51.36 Other intervertebral disc degeneration, lumbar region (principal)
CPT/HCPCS: 72148

== ENCOUNTER → 2024-07-10 | Outpatient (CLI) | payer BC, OTHER ==
--- NOTE | 2024-07-11 07:15 | CT ---
EXAMINATION TYPE: CT abdomen pelvis wo con CT DLP: 733.2 mGycm, Automated exposure control for dose reduction was used. DATE OF EXAM: 07/10/2024 6:10 PM COMPARISON: CT abdomen pelvis most recent from 10/29/2023 CLINICAL INDICATION: Male, 49 years old with history of M54.50 LOW BACK PAIN; Right flank pain x 1 we ek TECHNIQUE: Axial CT abdomen pelvis wo con;Sagittal and coronal reformats were created on a separate workstation. Contrast used: mL of , (none if empty) Oral contrast used: without Oral Contrast (none if empty) FINDINGS: LOWER CHEST: Unremarkable ABDOMEN LIVER: Unremarkable GALLBLADDER AND BILE DUCTS: Unremarkable. PANCREAS: Unremarkable. SPLEEN: Unremarkable. ADRENAL GLANDS: Unremarkable. KIDNEYS AND URETERS: Nonobstructing right renal calculus measuring 5 mm. No left renal calculi. No ob structing calculi. PELVIS BLADDER: Unremarkable REPRODUCTIVE: Unremarkable. ABDOMEN & PELVIS STOMACH AND BOWEL: No evidence of bowel obstruction. Scattered colonic diverticula.. The appendix is normal. PERITONEUM/RETROPERITONEUM: No evidence of pneumoperitoneum or free fluid. VASCULATURE: No evidence of aortic aneurysm. MUSCULOSKELETAL: No acute osseous abnormalities, postsurgical changes to the spine extending from L4 to L5. Discectomy at L4-5. Hardware appears intact. Laminectomy changes at L4 in L5. LYMPH NODES: No gross evidence for lymphadenopathy. SOFT TISSUE/ABDOMINAL WALL: Fat-containing left inguinal hernia. Fat-containing umbilical hernia. IMPRESSION: 1. No evidence for acute abdominal process. 2. Nonobstructing right renal calculus. 3. Normal-appearing appendix. 4. Left fat-containing inguinal hernia. 5. Colonic diverticulosis. 6. Post surgical changes spine with hardware intact.
== END | disposition home or self-care (01) ==
LOC: RADCTMAIN 17:49
PROVIDERS: ATTEND Family Medicine
DX: M54.50 Low back pain, unspecified
CPT/HCPCS: 74176

== ENCOUNTER → 2024-07-30 | Outpatient (CLI) | payer BC, OTHER ==
--- NOTE | 2024-07-30 16:59 | CA ---
Transthoracic Echo Report Name: Tani Mckinley Age: 49 Gender: M : 1975 Exam Date: 07/30/2024 15:36 Exam Location: [place] [facility] Ht (in): 70 Wt (lb): 205 Ordering Physician: Luz Maria Mac DO Attending/Referring Phys: Toolroom Checker Velma Jiménez RDCS Procedure CPT: Indications: R00.2 I47.19 Cardiac Hx: Technical Quality: Fair Contrast 1: Total Dose (mL): Contrast 2: Total Dose (mL): MEASUREMENTS (Male / Female) Normal Values 2D ECHO LV Diastolic Diameter PLAX 4.9 cm 4.2 - 5.9 / 3.9 - 5.3 cm LV Systolic Diameter PLAX 2.5 cm IVS Diastolic Thickness 1.0 cm 0.6 - 1.0 / 0.6 - 0.9 cm LVPW Diastolic Thickness 1.0 cm 0.6 - 1.0 / 0.6 - 0.9 cm LV Relative Wall Thickness 0.4 RV Internal Dim ED PLAX 2.0 cm LA Systolic Diameter LX 3.4 cm 3.0 - 4.0 / 2.7 - 3.8 cm LV Diastolic Volume MOD BP 91.5 cm??? 67 - 155 / 56 - 104 cm??? LV Systolic Volume MOD BP 36.7 cm??? 22 - 58 / 19 - 49 cm??? LV Ejection Fraction MOD BP 59.9 % >= 55 % LV Cardiac Index MOD BP 1797.4 cm???/min???m??? LV Diastolic Volume MOD 4C 105.8 cm??? LV Systolic Volume MOD 4C 41.8 cm??? LV Ejection Fraction MOD 4C 60.5 % LV Cardiac Index MOD 4C 2100.3 cm???/min???m??? LV Diastolic Length 4C 8.6 cm LV Systolic Length 4C 6.4 cm LV Diastolic Volume MOD 2C 74.9 cm??? LV Systolic Volume MOD 2C 32.3 cm??? LV Ejection Fraction MOD 2C 56.9 % LV Cardiac Index MOD 2C 1396.6 cm???/min???m??? LV Diastolic Length 2C 8.0 cm LV Systolic Length 2C 6.4 cm LA Volume 54.5 cm??? 18 - 58 / 22 - 52 cm??? LA Volume Index 25.2 cm???/m??? 16 - 28 cm???/m??? M-MODE Aortic Root Diameter MM 3.1 cm LA Systolic Diameter MM 3.2 cm LA Ao Ratio MM 1.1 AV Cusp Separation MM 2.2 cm DOPPLER MV Area PHT 2.3 cm??? Mitral E Point Velocity 77.7 cm/s Mitral A Point Velocity 71.8 cm/s Mitral E to A Ratio 1.1 MV Deceleration Time 332.6 ms FINDINGS Left Ventricle Left ventricular ejection fraction is estimated at 55-60%. Normal Left ventricular size, wall thickness, systolic function with no obvious regional wall motion abnormalities. Normal Left ventricular diastolic filling pattern. Right Ventricle Normal right ventricular size and function. Right ventricular systolic pressure within normal limits. Right Atrium Normal right atrial size. Left Atrium Normal left atrial size. Mitral Valve Structurally normal mitral valve. Trace mitral regurgitation. No mitral stenosis. Aortic Valve Trileaflet aortic valve. Trace aortic regurgitation. Thickened aortic valve without stenosis. Tricuspid Valve Structurally normal tricuspid valve. Trace tricuspid regurgitation. No tricuspid stenosis. Pulmonic Valve Structurally normal pulmonic valve. Trace pulmonic regurgitation. No pulmonic stenosis. Pericardium No pericardial or pleural effusion. Aorta Normal size aortic root and proximal ascending aorta. CONCLUSIONS Normal LV function Previewed by: Dr. Grzegorz La MD (Electronically Signed) Final Date: 30 July 2024 16:58
== END | disposition home or self-care (01) ==
LOC: RADECHMAIN 15:26
PROVIDERS: ATTEND Family Medicine
DX: I47.19 Other supraventricular tachycardia (principal); R00.2 Palpitations
CPT/HCPCS: 93306

== ENCOUNTER → 2024-08-06 | Outpatient (CLI) | payer BC, OTHER ==
--- NOTE | 2024-08-06 22:08 | XR ---
EXAMINATION TYPE: XR thoracic spine 2V DATE OF EXAM: 08/06/2024 6:26 PM CLINICAL INDICATION:Male, 49 years old with history of M54.6 PAIN IN THORACIC SPINE; PHH COMPARISON: TECHNIQUE: 2 views of the thoracic spine in Frontal and lateral projections. FINDINGS: No evidence of acute fracture or vertebral body height loss. There are mild multilevel degenerative c hanges with slightly exaggerated kyphosis. Trace S-shaped curvature of the thoracic spine suggested. Pedicles appear intact. IMPRESSION: No acute osseous pathology. [facility], , 08/06/2024 10:05 PM
== END | disposition home or self-care (01) ==
LOC: RADXRMAIN 17:59
PROVIDERS: ATTEND Nurse Practitioner
DX: M54.6 Pain in thoracic spine (principal)
CPT/HCPCS: 72070

== ENCOUNTER → 2024-09-16 | Outpatient (CLI) | payer BC, OTHER | END | disposition home or self-care (01) | LOC: LABPAT 16:16 | PROVIDERS: ATTEND Orthopaedic Surgery | DX: Z01.812 Encounter for preprocedural laboratory examination (principal); Z22.322 Carrier or suspected carrier of Methicillin resistant Staphylococcus aureus; M43.16 Spondylolisthesis, lumbar region | CPT/HCPCS: 86850; 86900; 86901; 87070 ==

== ENCOUNTER 2024-09-22 07:30 | Inpatient (IN) | payer BC, OTHER ==
--- NOTE | 2024-09-22 06:35 | P.HPOR ---
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 He has a history of L4-5 TLIF and is now experiencing hardware failure with cage migration causing severe central stenosis. The patient reports radiating pain, numbness, tingling, and weakness in his legs, with multiple falls and a return of bowel/bladder incontinence. Physical exam reveals decreased strength in lower extremities (4/5 right, 3-4/5 left), positive straight leg raise bilaterally, and restricted lumbar ROM. Imaging shows adjacent segment disease at L3-4 and L5-S1 with stenosis. The recommended treatment plan is L3-S1 decompression and fusion with hardware removal. DEMOGRAPHICS: Age: 49 year Height: 5'10" Weight: 210 lbs BP:/ BMI: 30.13 kg/m2 Occupation: *Field Insurance Sales Manager CC: *Lumbar pain VAS: * 9 HISTORY: Mr. Mckinley presents to the office today, 09/16/24, for *a pre-operative appointment preceding his L3-S1 decompression and fusion with hardware removal. Patient continues to reports pain that radiates down his lumbar spine and across his back into the bilateral lower extremities, associated with numbness and tingling. Patient states he is unable to feel his legs and as a result feels very weak and has had multiple falls. Patient has a history of L4-[address] Gallagher out of [place]. He notes a return of bowel and bladder incontinence which was a symptom before his previous surgery. He states initially after his surgery this went away but now the incontinence has returned. He is unable to work secondary to his pain and symptoms. Patient is currently taking [place] for his symptoms. He ambulates independently. * Patient denies any f/c/sob/cp, perineal numbness or tingling, bowel, or bladder incontinence/retention. * The patients past social, medical, family, surgical history, as well as review of systems, have been reviewed. Please refer to the History and Physical form that has been scanned into our electronic medical record system. * 16 points review of systems completed and as stated in HPI, all other systems reviewed are negative. PAST TREATMENTS: PAST IMAGING: -*YES, MRI, xray, CT -* TRAUMA RELATED: -*NO -* WORK RELATED: -*NO -* PT IN LAST 6 MONTHS: -*YES -* PHYSICIAN DIRECTED HOME EXERCISE PROGRAM: -*YES -* ACTIVITY MODIFICAITON: -*YES -* MEDICATIONS: -*YES, [place] -* ALTERNATIVE INTERVENTIONS (CHIROPRACTIC, ACCUPUNCTURE, MASSAGE, RICE): -*YES -* BRACING: -*NO -* INJECTIONS (JOSEFA, TF, RFA): -*YES -* MEDICAL HISTORY: Past Medical History: REVIEWED STATED IN CHART * Past Surgical History: REVIEWED STATED IN CHART * Social History: REVIEWED STATED IN CHART SMOKING: * Never smoker ETOH: * None SUBSTANCES: *None Family History: REVIEWED STATED IN CHART Current Medications: DEL none P1 Current Medications: Rx: ALPRAZolam 0.25 mg tablet Ref: 0 Instructions: take 1 tablet (0.25 mg) by oral route 3 times per day Rx: amphetamine Ref: 0 Instructions: 20mg Bid Rx: HYDROcodone 7.5 mg-acetaminophen 325 mg tablet Ref: 0 Instructions: take 1 tablet by oral route every 6 hours as needed for pain Rx: ibuprofen 800 mg tablet Ref: 0 Instructions: take 1 tablet (800 mg) by oral route 3 times per day with food Rx: montelukast 10 mg tablet Ref: 0 Instructions: take 1 tablet (10 mg) by oral route once daily in the evening P1 PHYSICAL EXAM: General: AOX3, NAD, Well hydrate, well nourished HEENT: No lumps or masses Extremities: No color changes, no pooling *Heart: RRR, no murmur, no gallop *Lungs: CTAB, no w/r/r INTEGUMENT: Appearance: * Normal color and turgor Surgical Incisions: *Healed Hairy Patches: ABSENT Dorsal Skin Dimples: Normal [employer] la[employer] spots: ABSENT PALPATION: TTP Midline: *YES Paracervical: *NO Parathoracic: *NO Paralumbar: *YES SIJ TESTING (Luis Fernando's, FABER4, Compression, Distraction, Thigh Thrust, Hip Thrust): * TESTED * POSITIVE FINDINGS: * NEGATIVE FINDINGS: * Luis Fernando's, FABER4, Compression, Distraction, Thigh Thrust, Hip Thrust POSTURAL BALANCE: Coronal: *BALANCED Sagittal: *BALANCED Shoulder height: LEVEL Pelvic Girdle: LEVEL ROM AND APPEARANCE: Neck: *UNRESTRICTED * Lumbar: *RESTRICTED with pain * Shoulders: Symmetrical Hips: Symmetrical Knees: Symmetrical Hands: Symmetrical Feet: Symmetrical VASCULAR STATUS: PALPABLE PULSES B/L UE AND LE 2/4 RAD/ULNAR/DP/PT Edema: NONE NEUROLOGICAL EXAMINATION: Mental Status: Awake, alert, fully oriented with normal attention, concentration, and memory. Fluent appropriate speech. CRANIAL NERVES: I: Olfactory not assessed. II: Visual acuity normal, no visual field deficit noted with confrontation. III, IV: Normal pupillary reflexes & intact extraocular movements without nystagmus. V, : Intact symmetrical facial sensation. VII: Intact symmetrical facial motor movement: Hearing intact. IX, X: Intact gag, swallow, & normal voice. XI: Sternocleidomastoid, trapezius function intact. XII: Tongue midline with normal movements. TENSIONING: * L'HERMITTE'S SIG:*NEG SPURLUNG'S SIGN:*NEG UPPER EXTREMITY TENSIONING SIGNS: *NEG CUBITAL TUNNEL COMPRESSION:*NEG TINELS AT WRIST:*NEG STRAIGH LEG RAISE:*POS B/L CONTRALATERAL STRAIGHT LEG RAISE: *POS MOTOR EXAM (0-5/5, NT) Muscle appearance: *Symmetrical, without signs of atrophy or dystrophy UPPER EXTREMITY RIGHT LEFT Shoulder Abduction *5 *5 Biceps *5 *5 Triceps *5 *5 Wrist Extension *5 *5 Hand Intrinsics *5 *5 Lead Software Developer *5 *5 LOWER EXTREMITY RIGHT LEFT Hip Flexion *4 *4 Knee Extension *4 *4 Knee Flexion *4 *4 Dorsiflexion *4 *4 Plantarflexion *4 *3 EHL *4 *3 FHL *4 *3 REFLEXES (0-4/2, NT): RIGHT LEFT Bicep 2 2 Brachioradialis 2 2 Triceps 2 2 Patellar 1 1 Achilles 1 1 PATHOLOGICAL REFLEXES: RIGHT LEFT ENAMOARDO'S *ABSENT *ABSENT CLONUS *ABSENT *ABSENT BABINSKI *ABSENT *ABSENT RECTAL TONE: *INTACT/NT SENSATION (0-4, NT): Sensation intact to LT and Pain * C5-T1 distribution BUE * L2-S2 distribution BLE *Exceptions below* DERMATOMAL DEFICIT/RADICULAR PATTERN: *L4-S1 GAIT AND FUNCTIONAL EVALUATION: AMBULATORY AID *NONE ROMBERG'S TEST *INTACT HAND AND FINGER DEXTERITY INTACT *YES DYSDIADOCHOKINESIA EXAM NEG B/L *YES TOE/HEEL WALK INTACT WITH GOOD BALANCE *NO SQUAT AND RISE W/O ASSISTANCE TO 60 DEG KNEE FLEXION *NO SINGLE LEG STANCE NOT ABLE [place]G *NEG IMAGING: No new images, SEE PREVIOUS NOTES IMPRESSION: It was my pleasure to have seen and examined Tani. I reviewed the patient's clinical syndrome, physical findings, and imaging studies during the appointment today. It is my impression that the patient has a diagnosis of. 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 Lower extremity weakness with paresthesia 5. Neurogenic claudication PLAN: DISCUSSION: -*I have discussed with the patient their clinical signs and symptoms, imaging, and treatment options. We have discussed risks, benefits, potential outcomes and natural course as pertains top their issues. The patient understands and would like to proceed as follows below: SURGICAL RECOMMENDATION -*L3-S1 decompression and fusion with hardware removal Surgical Procedure Risk Review Tani Mckinley is a 49 year old male presenting for evaluation of sudden onset of *low back pain, le weakness, le paresthesias. It was my pleasure to have seen and examined Mr. Mckinley. In our visit today we have had a chance to go over subjective complaints, physical examination findings and treatments, including the natural course history without intervention and various interventional options. The imaging demonstrates *hardware failure of L4-5 cage with migration and severe canal encroachment on the right side with foraminal and central stenosis. There is flattened LL due to the collapse and the malplacement. No fractures or lesions. . On physical exam, Mr. Mckinley demonstrates *LE weakenss, LE paresthesias, Pain with motion, pain with any activity. Difficulty with urination.. I explained to the patient that as his condition progresses it could cause * permanent or continued nerve damage, weakness, pain devility . At this time, based on the patients imaging and physical exam, I recommend surgery in the form or a: *Revision L3-Pelvis decompression and fusion with hardware revision . I discussed the risk and benefits of this procedure at length with Mr. Mckinley. The patient spouseagreed to consider pursuing the procedure mentioned above. Plan: 1. *Revision L3-Pelvis decompression and fusion with hardware revision and removal. 2. * Clearances obtained 3. Risks reviewed again with patient and . Pt willing to proceed. Risks: All surgical procedures come with inherent risks, including those related to positioning, anesthesia, intraoperative findings, and postoperative complications. It is important to understand that surgery does not come with any guarantee of a successful outcome as complications and adverse events are always possible. The patient was given a handout in office today discussing the surgical procedure and risks associated with the intervention, both of which were discu ssed with the patient. These risks include but are not limited to the following: ? Experiencing same, different or even worse symptoms in back, neck, arms, or legs compared to before surgery. ? Requiring further surgery or other forms of treatment presently or at some time in the future at same or other levels of the intended spine surgery. ? On an extreme but fortunately relatively rare basis severe complication such as blindness, stroke, heart attack, temporary and/or permanent nerve injury, paralysis, coma, or may occur, sometimes without known explanation. ? Surgical complications may include but are not limited to risk of infection, fluid accumulation in the surgical dissection site, including a seroma or hematoma, that requires additional surgery, wound drainage, bleeding, new numbness or weakness, vision changes/loss, spinal fluid leakage, non-healing and/or infected incision, headaches, difficulty or inability to swallow, hoarseness, hemopneumothorax, pneumothorax, impotence, retrograde ejaculation, vaginal dryness; injury to nerves, spinal cord, blood vessels, lymphatics or other vital organs (i.e., bowel injury, injury to the great vessels); heterotopic bone formation; complications related to the hardware such as screws, rods, cages including misplaced hardware, device failure, instrumentation at the wrong spine level, hardware fracture/breakage, or hardware loosening; vertebral failure of the spinal column above or below the newly placed hardware; retained surgical instrumentations or devices and the need for further surgery. ? Medical risks of the planned spine surgery include but are not limited to generalized Infections to the whole body or local areas outside of the surgical site (sepsis), heart attack, bleeding, anaphylaxis, meningitis, seizure, epilepsy, hearing loss, burn cardozo, laceration of the head or other areas of the body, bruising, hypersensitivity of the skin, bladder over distension; allergic reaction; shoulder injury related to positioning; fat, blood and air clots to other areas of the body like heart, lungs, brain; failure of internal organs such as lungs, kidneys, liver and excessive bleeding. If blood transfusions are necessary, note that transfusions may cause intolerance reactions such as anaphylaxis or other complex reactions. Despite best efforts, the results of spine surgery might not heal in terms of bone, soft tissues such as skin, fascia, ligaments, and joints. Additionally, in order to achieve best possible results, spine surgery may be carried out beyond the initially planned levels and involve decompression, fusion including insertion of hardware at levels other than the original intended area of surgical interest change some portions of the procedure in order to ensure the best possible outcomes. With spine surgery and spinal fusion, there are different off label uses of instrumentation (devices, implants and hardware) as well as biological substance s (bone morphogenic proteins, demineralized bone matrix) as well as using extra bone from allograft sources (i.e. cadaver bone) or autograft (iliac crest bone, ribs, or the spine itself). The patient has been given information about these practices and their inherent risks and benefits. [facility] Physician Assistants are medically trained surgical providers who function in the outpatient, inpatient, and operating room setting under the direct supervision of the attending surgeon.They assist in the operating room with direct supervision of the attending surgeons. The patient has had a chance to review all the listed information, has been given print outs detailing this information, and has had all his/her questions answered to their satisfaction. It was my pleasure to have seen and examined Mr. Mckinley. In our visit today we have had a chance to go over my understanding of our patient's current condition, the natural course history without intervention and various int erventional options. Questions were invited and answered, and the patient wishes to proceed as outlined above. I have seen and examined the patient for 25 minutes and we have spent more than 50% of the time in repeat and detailed counseling about the patient's condition, its natural course history with out and as much as can be predicted with surgery and re-review of various surgical treatment options. In conclusion,Mr. Mckinley and his spouse/partner requested we proceed with the above suggested surgery and are willing to accept risks and limitations of the suggested surgery as nature of the disease process and our best attempts at treatment for the condition. Frank Baker DO [facility] Sp[facility] Complex and Minimally Invasive Spine Surgery [address] [place], [place] [id number] [address] FOLLOW UP: *POST-OP PLAN AT NEXT VISIT: * RECHECK PATIENT EDUCATION: Medications Reviewed: YES In our visit today Mr. Mckinley and I have had a chance to go over my understanding of the patient's current condition, the natural course history without intervention and various interventional options. Questions were invited and answered, and the patient wishes to proceed as outlined above. I will be sure to keep you updated after Mr. Mckinley returns here for further follow-up. Thank you again for your referral. Please do not hesitate to contact me if you have any further questions. Signed and authenticated by: Frank Baker DO [facility] and Minimally Invasive Spine Surgery [address] [place], [place] [id number] [address] . This message is confidential, intended only for the named recipient(s) and may contain information that is privileged or exempt from disclosure under applicable law. If you are not the intended recipient(s), you are notified that the dissemination, distribution or copying of this information is prohibited. If you received this message in error, please notify the sender then delete this message. Past Medical History Past Medical History: Osteoarthritis (OA) Additional Past Medical History / Comment(s): MIGRAINE HEADACHE. allergies. coughs alot after eating - dx yet. History of Any Multi-Drug Resistant Organisms: None Reported Past Surgical History: Back Surgery, Hernia Repair, Orthopedic Surgery Additional Past Surgical History / Comment(s): RIGHT KNEE ARTHROSCOPIC , VASECTOMY, Back surgery [facility] 01/2024, colonoscopy, egd. [facility] Past Anesthesia/Blood Transfusion Reactions: Previous Problems w/ Anesthesia Additional Past Anesthesia/Blood Transfusion Reaction / Comment(s): "TOOK MORE TO PUT HIM TO SLEEP". During back surgery at [facility] 01/2024 pt states his pupils stopped reacting, he was narcaned twice, and CT was done to rule out a stroke ( negative) 2 hrs surgery turned into 8 hrs. pt has medical record from that surgery and will bring with him. (no issues with any other surgeries) Smoking Status: Never smoker - Past Family History Mother Family Medical History: Cancer, Deep Vein Thrombosis (DVT) Medications and Allergies Home Medications Medication Instructions Recorded Confirmed Type ALPRAZolam [Xanax] 0.5 mg PO TID PRN 04/04/22 09/17/24 History Dextroamphetamine/Amphetamine 20 mg PO BID 04/04/22 09/17/24 History [Adderall] Ibuprofen [Motrin] 800 mg PO Q8HR PRN 04/04/22 09/17/24 History Hydrocodone/Acetaminophen 1 tab PO TID PRN 09/17/24 09/17/24 History [Hydrocodone/Acetaminophen 7.5-325] Montelukast [Singulair] 10 mg PO DAILY PRN 09/17/24 09/17/24 History Tirzepatide [Zepbound] 12.5 mg SQ WEEKLY 09/17/24 09/17/24 History buPROPion XL [Wellbutrin XL] 150 mg PO DAILY 09/17/24 09/17/24 History Allergies Allergy/AdvReac Type Severity Reaction Status Date / Time adhesive tape Allergy rash-peels Verified 09/17/24 11:21 skin. DUST Allergy Rash/Hives Uncoded 09/17/24 10:54 maple AdvReac Rash/Hives Uncoded 09/17/24 10:54 Physical Examination Osteopathic Statement: *. No significant issues noted on an osteopathic struct ural exam other than those noted in the History and Physical/Consult.
[~2024-09-22 07:30] MED LIST changes: -LACTATED RINGERS 1,000 ML IV SCH; +TRANEXAMIC 1,000 MG/100ML-NACL 1,000 MG in SALINE 1 100ML.BAG IVPB PRN
[2024-09-22] MEDS: IV FLUID CONTINUATION 1,000 ML IV ONE (12:40)
[2024-09-22 12:43] LABS: Glucose,Whole Blood 82 mg/dL (70-110)
[2024-09-22] MEDS: LACTATED RINGERS 1,000 ML IV SCH (12:46)
[2024-09-22] MEDS: ACETAMINOPHEN TAB 500 MG TAB PO PRN (12:47)
[2024-09-22] MEDS: GABAPENTIN 300 MG CAP PO PRN (12:48)
[2024-09-22] MEDS: ONDANSETRON 4 MG/2 ML VIAL IVP ONE (12:48)
[2024-09-22] MEDS: DEXAMETHASONE SOD PHOSPHATE 4 MG/ML 1 ML VIAL IV ONE (12:49)
[2024-09-22] MEDS: MIDAZOLAM 2 MG/2 ML VIAL IV PRN (13:06)
[2024-09-22] MEDS: fentaNYL (PF) 50 MCG/ML 2 ML AMP IVP PRN (13:30)
--- NOTE | 2024-09-22 13:30 | P.ANPRN ---
Procedure Note - Anesthesia - Invasive Line Right Central Line Time Out Performed: Yes Date of Procedure: 09/22/24 Time of Procedure: 13:06 Location of Patient: PreOp Preparation: Sterile Prep, Sterile Dressing Central Line Location: Internal Jugular Ultrasound Used: Yes Purpose - Visualization and Identification of Vasculature: Yes Image Stored and Saved: Yes Narrative: Invasive line placement per sterile protocol utilized.
--- NOTE | 2024-09-22 13:50 | XR ---
EXAMINATION TYPE: XR chest 1V portable DATE OF EXAM: 09/22/2024 COMPARISON: NONE CLINICAL INDICATION: Male, 49 years old with history of LINE PLACEMENT; , TECHNIQUE: XR chest 1V portable views of the chest. FINDINGS: The lungs are clear and there is no pneumothorax, pleural effusion, or focal pneumonia. Heart size normal and no overt failure. Osseous structures demonstrate hypertrophic and degenerative changes of the spine. Limited inspiration. Right-sided central line seen with the tip overlying the right atrium . AC joint arthropathy. IMPRESSION: 1. Right-sided central line with tip overlying right atrium. No pneumothorax. [facility], , 09/22/2024 1:48 PM
--- NOTE | 2024-09-22 13:54 | P.ANPRN ---
Procedure Note - Anesthesia - Invasive Line Left Arterial Line Time Out Performed: Yes Date of Procedure: 09/22/24 Time of Procedure: 13:40 Location of Patient: PreOp Preparation: Sterile Prep Arterial Line Location: Radial Ultrasound Used: Yes Purpose - Visualization and Identification of Vasculature: Yes Image Stored and Saved: Yes Narrative: Invasive line placement per sterile protocol utilized.
[2024-09-22] MEDS ORDERED: TRANEXAMIC 1,000 MG/100ML-NACL PREMIX BAG ONE (14:47)
[2024-09-22] MEDS ORDERED: ROCURONIUM 10 MG/ML (5 ML VIAL) IV ONE (14:47)
[2024-09-22] MEDS ORDERED: fentaNYL (PF) 50 MCG/ML 2 ML AMP ONE (14:47)
[2024-09-22] MEDS ORDERED: PROPOFOL 10 MG/ML 20 ML VIAL IV ONE (14:47)
[2024-09-22] MEDS ORDERED: MIDAZOLAM 2 MG/2 ML VIAL ONE (14:47)
[2024-09-22] MEDS ORDERED: PHENYLEPHRINE-0.9% NACL SYG 1,000 MCG/10 ML SYRINGE ONE (14:47)
[2024-09-22] MEDS ORDERED: SUCCINYLCHOLINE CHLORIDE 200 MG/10 ML VIAL IV ONE (14:47)
[2024-09-22] MEDS ORDERED: HYDROmorphone (PF) 1 MG/ML ONE (14:47)
[2024-09-22] MEDS ORDERED: KETAMINE HCL IN 0.9 % NACL 50 MG/5 ML SYRINGE ONE (14:47)
[2024-09-22] MEDS ORDERED: LIDOCAINE 1% INJ 10MG/ML (20 ML MDV) ONE (14:47)
[2024-09-22] MEDS: LACTATED RINGERS 1,000 ML IV ONE ×2 (14:52→18:22)
[2024-09-22] MEDS: THROMBIN (BOVINE) 5,000 UNIT VIAL TOPICAL ONE (15:24)
[2024-09-22] MEDS: ceFAZolin 3,000 MG in SODIUM CHLORIDE 0.9% IRRIGATIO 3,000 ML IRRIGATION ONE (15:24)
[2024-09-22] MEDS: GENTAMICIN 80 MG in SODIUM CHLORIDE 0.9% IRRIGATIO 3,000 ML IRRIGATION ONE (15:24)
[2024-09-22] MEDS: VANCOMYCIN 1,000 MG VIAL MISCELLANE ONE (19:43)
--- NOTE | 2024-09-22 20:09 | XR ---
EXAMINATION TYPE: XR lumbar spine 2 or 3V DATE OF EXAM: 09/22/2024 8:03 PM COMPARISON: Previous study 07/24/2024. CLINICAL INDICATION: Male, 49 years old with history of L3-S1 Fusion; [facility] TECHNIQUE: XR lumbar spine 2 or 3V - FINDINGS: Intraoperative fluoroscopic views of the lumbosacral spine were obtained and submitted to radiology f or interpretation. Spinal fusion hardware now visualized spanning L3-S1. Final image demonstrates tra nspedicular screw and juan fixation and multilevel intervertebral disc spacer devices. Multiple surgic al instruments present on initial images posterior to the lumbosacral spine. IMPRESSION: Intraoperative fluoroscopic views of the lumbosacral spine as above. [facility], , 09/22/2024 8:07 PM
[2024-09-22] MEDS ORDERED: NA PHOS,M-B/NA PHOS,DI-BA 133 ML ENEMA RECTAL PRN (20:31)
[2024-09-22] MEDS ORDERED: MAG HYDROX/AL HYDROX/SIMETH 30 ML CUP PO PRN (20:31)
[2024-09-22] MEDS ORDERED: bisacodyL 10 MG SUPP RECTAL PRN (20:31)
[2024-09-22] MEDS ORDERED: ONDANSETRON 4 MG/2 ML VIAL IVP PRN (20:31)
[2024-09-22] MEDS ORDERED: CYCLOBENZAPRINE 10 MG TAB PO PRN (20:31)
[2024-09-22] MEDS ORDERED: NALOXONE 0.4 MG/ML 1 ML VIAL IV PRN (20:37)
[2024-09-22] MEDS: HYDROmorphone 0.5 MG/0.5 ML SYRINGE IVP PRN (20:49)
[2024-09-22] MEDS: ONDANSETRON 4 MG/2 ML VIAL IVP PRN (21:46)
--- NOTE | 2024-09-22 22:04 | P.PN ---
Progress Note - Text Progress Note Date: 09/22/24 Brief Post Op: Surgeon: Christopher Pre op dx; hardware failure L4-L5 stenosis L3-S1 with spondylosis Post op dx: Same Procedure: Revision L3-S1 decompression fusion Anesthesia: GETA EBL: 400 Fluids: 2000 UO: 550 Dispo: Stable to PACU Post op Plan: Post operative noncontrasted CT scan Encourage ambulation IS 10x/hr Teds/SCDs Pain control No brace needed for ambulation Record Drain output
[2024-09-22] MEDS: 0.9% NACL WITH KCL 20 MEQ/L 1,000 ML IV SCH (22:30)
--- NOTE | 2024-09-22 22:33 | FL ---
Intraoperative/procedural fluoroscopic services were provided for lumbar fusion L3-S1. Total fluorosc opy time is 1.09 minutes with a total of 7 submitted images to PACS. Total DAP 16.137 Gycm2. Please see the operative note for further details. [facility], , 09/22/2024 10:30 PM
[2024-09-22] MEDS: HYDROmorphone PCA 10 MG/50 ML BAG IV PRN (22:40)
[2024-09-22] MEDS: GABAPENTIN 300 MG CAP PO SCH (22:50)
[2024-09-23] MEDS: ACETAMINOPHEN TAB 325 MG TAB PO SCH (00:27)
[2024-09-23] MEDS: KETOROLAC 15 MG/ML 1 ML VIAL IVP SCH (00:27)
[2024-09-23 08:34] LABS: Basophils # (A) 0.02 X 10*3/uL (0.00-0.10); Basophils % (A) 0.2 %; Eosinophils # (A) 0 X 10*3/uL (0.04-0.35); Eosinophils % (A) 0 %; HCT 34.1 % (39.6-50.0); HGB 11.6 g/dL (13.0-17.0); Lymphocytes # (A) 0.94 X 10*3/uL (0.90-5.00); Lymphocytes % (A) 8.1 %; MCH 30.1 pg (27.0-32.0); MCV 88.6 FL (80.0-97.0); Mean Platelet Volume 10.3 FL (9.5-12.2); Monocytes # (A) 0.84 X 10*3/uL (0.20-1.00); Monocytes % (A) 7.2 %; NRBC Per 100 WBC 0 X 10*3/uL (0.00-0.01); Neutrophils # (A) 9.77 X 10*3/uL (1.80-7.70); Neutrophils % (A) 83.9 %; Platelet Count 217 X 10*3/uL (140-440); RBC 3.85 X 10*6/uL (4.40-5.60); RDW 14.1 % (11.5-14.5); WBC 11.64 X 10*3/uL (4.50-10.00)
[2024-09-23 09:11] LABS: BUN/Creat Ratio 18.62 Ratio (12.00-20.00); Blood Urea Nitrogen 14.9 mg/dL (9.0-27.0); Calcium 8.2 mg/dL (8.7-10.3); Carbon Dioxide 21.5 mmol/L (21.6-31.8); Chloride 107 mmol/L (96-109); Glucose 130 mg/dL (70-110); Potassium 4.6 mmol/L (3.5-5.5); Sodium 137 mmol/L (135-145)
[2024-09-23] MEDS: SENNOSIDES-DOCUSATE SODIUM 1 EACH TAB PO SCH (09:20)
[2024-09-23] MEDS: polyethylene glycoL 3350 17 GM POWD.PACK PO SCH (09:21)
[2024-09-23] MEDS: diazePAM 5 MG TAB PO PRN (09:24)
[2024-09-23] MEDS ORDERED: MONTELUKAST 10 MG TAB PO PRN (10:17)
[2024-09-23] MEDS ORDERED: ALPRAZolam 0.5 MG TAB PO PRN (10:17)
--- NOTE | 2024-09-23 10:17 | P.PN ---
Subjective Progress Note Date: 09/23/24 Principal diagnosis: Status post revision L3-S1 decompression and fusion Patient is a 49-year-old male who was evaluated at bedside, he is resting comfortably in his chair. Patient's back pain is currently controlled with current medicine regimen. Urinary catheter remains in place. He has been up and ambulating, he does have a LSO brace present at bedside. Patient has been passing gas. He denies any camron weakness in the lower extremities. He denies headaches, lightheadedness, chest pain or shortness of breath Objective - Vital Signs Vital signs: Vital Signs Temp 97.8 F 09/23/24 07:07 Pulse 77 09/23/24 07:07 Resp 18 09/23/24 07:07 BP 111/70 09/23/24 07:07 Pulse Ox 97 09/23/24 07:07 FiO2 Intake & Output 09/22/24 09/23/24 09/23/24 18:59 06:59 18:59 Intake Total 1552 75 Output Total 1050 Balance 1552 -975 Weight 89.9 kg 89.9 kg Intake: IV 1552 75 Output: Drainage 150 Lower Back 150 Urine 500 Estimated Blood Loss 400 - Exam Gen: AOx3, NAD VSS stable at this time Integument: Postop dressing and Hemovac in good position and condition Palpation: Mild tenderness with palpation to the lumbar spine ROM: Full range of motion in all major muscle groups of the bilateral upper and lower extremities Sensory Exam: Senory exam to light touch is intact C5-T1 Senosry exam to light touch is intact L2-S1, dermatome deficit noted in L4-S1 bilaterally Motor: 4/5 strength appreciated bilateral lower extremities with hip flexion, knee extension, knee flexion, plantarflexion, dorsiflexion, EHL, FHL Reflexes: 2/4 in all UE and LE Negative Joesph's bilaterally Negative clonus bilaterally - Labs CBC & Chem 7: 09/23/24 03:14 09/23/24 03:14 Labs: Abnormal Lab Results - Last 24 Hours (Table) 09/23/24 09/23/24 Range/Units 03:14 03:14 WBC 11.64 H (4.50-10.00) X 10*3/uL RBC 3.85 L (4.40-5.60) X 10*6/uL Hgb 11.6 L (13.0-17.0) g/dL Hct 34.1 L (39.6-50.0) % Immature Gran # 0.07 H (0.00-0.04) X 10*3/uL Neutrophils # 9.77 H (1.80-7.70) X 10*3/uL Eosinophils # 0 L (0.04-0.35) X 10*3/uL Carbon Dioxide 21.5 L (21.6-31.8) mmol/L Glucose 130 H (70-110) mg/dL Calcium 8.2 L (8.7-10.3) mg/dL Assessment and Plan Assessment: Postoperative day #1 status post revision L3-S1 decompression and fusion Plan: Pain control, continue with current medications. Will try to have patient limit the amount of HEAD LOADER use and transition to more oral medications DVT prophylaxis, aspirin 81 mg daily Wound care, continue to monitor drain output and surgical dressing. Plan for dressing change on 09/24/2024 LSO brace when up and ambulating, weight-bear as tolerated with walker Continue PT/OT DC urinary catheter, monitor for urinary retention Encourage incentive spirometer Medical recommendations appreciated Discharge planning: Anticipate discharge to home with home health care in the next 24-48 hours Time with Patient: Less than 30
--- NOTE | 2024-09-23 14:16 | P.OP ---
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 Lower extremity weakness with paresthesia 5. 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 Lower extremity weakness with paresthesia 5. Neurogenic claudication Procedure(s) Performed: 1. L4-5 VERTEBRAL BODY OSTEOTOMY FOR REMOVAL OF HARDWARE (CAGE) DUE TO FAILURE AND LOOSENING (77509) 2. L3-4 POSTEROLATERAL AND INTERBODY FUSION (14016) 3. L4-5 REVISION POSTEROLATERAL AND INTERBODY FUSION (64946) 4. L5-S1 POSTEROLATERAL AND INTERBODY FUSION (64332) 5. TRANSPEDICULAR DECOMPRESSION L4-5 FOR CAGE EXPOSURE AND REMOVAL (93099) 6. SEGMENTAL INSTRUMENTATION L3-S1 3-6 LEVELS (09153) 7. L3-4, L4-5, L5-S1 REVISION BILATERAL LAMINECTOMY, COMPLETE FACETECTOMY AND FORAMINOTOMY FOR COMPLETE NEURAL DECOMPRESSION, DEFORMITY CORRECTION AND CAGE PLACEMENT (61816, [id number]) 8. REMOVAL OF HARDWARE, SEGMENTAL L4-5 (96727) 9. REMOVAL OF HARDWARE, ANTERIOR COLUMN INTERBODY DEVICE L4-5 (51860) 10. EXPLORATION OF FUSION, WITH PSEUDOARTHROSIS FINDINGS AT L4-5 WITH HARDWARE FAILURE (72152) 11. INSERTION OF BIOMECHANICAL DEVICES L3-4, L4-5, L5-S1, CAGES x3 (05296b2) 12. USE OF [employer] NAVIGATION FOR THE ASSISTANCE IN ACCURATE SCREW PLACEMENT (09624) USE OF IONM ALL SCREWS TESTING >15 mA Implants: -[employer]SE [employer] EVEREST RODS AND SCREWS -AMPLIFY DUAL X (L5_s1 INTERBODY) 15 DEG 9-12MM -GLOBUS SABLE CAGESx2 10mm x 9-16mm MEDIUM 15 DEG AND 8 DEG -AUTOGRAFT, ALLOGRAFT, CONTOUR, MAGNATOS, ARTHROCELL, ALLOCELL, DBM Anesthesia: GETA Surgeon: Rasheed White Home Health Manager #1: Toney Barbosa (ANTELMO Murdock Was present and assisted with all aspects of the case from positioning to dressing placement) Estimated Blood Loss (ml): 400 IV fluids (ml): 2,000 Urine output (ml): 530 Pathology: none sent Condition: stable Disposition: PACU Indications for Procedure: Tani Mckinley is a 49 year old male presenting for evaluation of sudden onset of *low back pain, le weakness, le paresthesias. It was my pleasure to have seen and examined Mr. Mckinley. In our visit today we have had a chance to go over subjective complaints, physical examination findings and treatments, including the natural course history without intervention and various interventional options. The imaging demonstrates *hardware failure of L4-5 cage with migration and severe canal encroachment on the right side with foraminal and central stenosis. There is flattened LL due to the collapse and the malplacement. No fractures or lesions. . On physical exam, Mr. Mckinley demonstrates *LE weakenss, LE paresthesias, Pain with motion, pain with any activity. Difficulty with urination.. I explained to the patient that as his condition progresses it could cause *permanent or continued nerve damage, weakness, pain devility . At this time, based on the patients imaging and physical exam, I recommend surgery in the form or a: *Revision L3-Pelvis decompression and fusion with hardware revision . I discussed the risk and benefits of this procedure at length with Mr. Mckinley. The patient spouseagreed to consider pursuing the procedure mentioned above. Plan: 1. *Revision L3-Pelvis decompression and fusion with hardware revision and removal. Description of Procedure: L3-S1 open Decompression and fusion (milagros) Revision with NEFTALI The patient was seen and examined in the preoperative area. All preoperative protocols were followed. Informed consent was obtained, risks and benefits of the procedure were discussed at length. Risks including bleeding infection damage to the surrounding tissue and risk of reoperation were discussed with the patient. Risk of anesthesia up to and including was discussed with the patient. These are outlined in the risk review. They were willing to accept these risks and all the risks of surgery. The patient was given a weight-based dose of antibiotics in the form of 2 g Ancef. The patient was seen and ev aluated by the anesthesia team who deemed them fit for surgery. The site was marked, the patient was willing to proceed with the procedure. The patient was transferred to the operative suite by the Department of anesthesia. They were then drifted off to sleep by the department anesthesia and GETA was performed. The patient tolerated this well. Orosco catheter was placed by nursing staff, a-traumatically. Once confirmation of lines and ventilation the patient was transferred to a prone Tuan table very carefully. All bony prominences including wrists, elbows, axilla, chest, hips, and thighs, and feet were padded very well. Special attention was paid to the genitalia, and these were padded accordingly. SCDs were placed on bilateral lower extremities and were connected. Arms were well padded and placed on arm boards up and out in the 90/90 position. Once in position, again we confirmed good ventilation capabilities and that lines were running appropriately. The patients Lumbar spine was then exposed. 1010s were placed outlining the incision site. Standard alcohol was used to clean the incision site and allowed to dry. C-arm was used to needle localize the pedicles at L4-S1 and bio-reymundo the patient and confirm level for incision which was marked with a skin marker. Operative briefing was performed with all teams and everyone in agreement to proceed. The patient was then prepped and draped in a normal sterile fashion. Timeout was then performed, and all parties agreed with the procedure to be performed. Midline skin incision was made over the previously bio-marked area and dissection taken down over the SP of L3-S1. L3-S1 was taken out over facet joints and TPs and a penfield 4 used to reymundo the L4 pedicle. Lateral image used to confirm levels. Old hardware was identified and set screws and rods removed. Screws were tested and the b/l L4 and L5 screws were loose. All previous hardware was then removed posteriorly. Once this was accomplished, screws were p roceeded to be placed b/l at pedicles from L3-S1 using [employer] Navigation. An SP clamp was used, 3D C arm spin obtained and confirmed to be accurate. Once this was confirmed screws were placed using a navigated shantelle, navigated awl-tap and navigated reach lift truck driver. Once screws were placed they were confirmed to be in good position using AP and Lateral fluoroscopy. The wound was then irrigated. Screws were tested and all tested above 15 mA. We then proceeded to decompression and cage placement. Attention was then turned to interbody fusion at L5-S1. Bilateral laminectomy, complete facetectomy and foraminotomy performed at L5-S1 using high speed shantelle and Kerrison rongure. The ligamentum was removed and the dural sac decompressed. Exiting and traversing roots visualized and decompressed. Neural elements were then protected, and disc space accessed with an osteotome. Sequential shaving then done under lateral imaging and complete discectomy performed using aleah, pituitary and curette. Once good bleeding endplates accomplished and good height judaism with trials, a combination of autograft, allograft and synthetic placed anterior in the disc space. The cage was then selected and impacted into place under lateral imaging. The cage was then expanded restoring height, lordosis and alignment. The cage was backfilled with bone graft through a funnel. The maintenance technician 3rd shift was removed and the area inspected. Good cage placement, stable cage and no injuries. Area was irrigated copiously, and meticulous hemostasis achieved. The tubular retractor was then removed under direct visualization. Attention was then turned to L4-5 where revision decompression was done. Bilateral laminectomy, bilateral complete facetectomy and foraminotomy was done here with careful dissection due to exhuberent scar formation around the dura. We then accessed the disc space transpedicular at L4 secondary to again scar formation as well as previous cage placement and migration. Careful dissection revealed the cage to be nearly skilled nursing into the canal on this side causing severe thecal sac displacement. We carefully dissected thecal sac off the cage anteriorly and then retracted this. Then a vertebral body osteotomy was done with 1/4 in osteotome into L4 and L5 vertebral body for removal of the cage. This was done under lateral fluroscopic guidance and direct visualization. The osteotome was passed into the anterior portions of both L4 and L5 for anterior removal of hardware and loosening of the cage. The cage was already partially loose due to either migration of pseudoarthrosis, but was still growing in. Once osteotomy was complete we further lateralized osteotomy so as to tip the cage laterally to pull out from a more TLIF approach due to the cage being placed in a PLIF approach, we did not want to retract the scarred dura any more than necessary as there was already tension on the exiting and traversing roots due to the cage migration and encroachment. We then tamped the cage anteriorly and repositioned it, turned it out lateral and were able to remove it with ease. There were no injuries during the event. The cage was removed in its entirety. There was some bone loss on the cage. The disc space was then irrigated thoroughly and packed. We then accessed the contralateral side protecting the exiting and traversing nerve roots with an osteotome we performed sequential shaving and completely remove the disc at this level bleeding endplates were encountered and we sized and selected the cage for this level. Anterior to the cage was placed Contour autograft allograft. This was impacted anteriorly. Cage was then sized selected and impacted into position it was then expanded under lateral fluoroscopic guidance to appropriate height restoring height patricia dosis and alignment. Meticulous hemostasis was performed. We then proceeded to the L3-L4 level. Attention was then turned to interbody fusion at L3-4. Bilateral laminectomy, complete facetectomy and foraminotomy performed a using high speed shantelle and Kerrison rongeur. The ligamentum was removed and the dural sac decompressed. Exiting and traversing roots visualized and decompressed. Neural elements were then protected, and disc space accessed with an osteotome. Sequential shaving then done under lateral imaging and complete discectomy performed using aleah, pituitary and curette. Once good bleeding endplates accomplished and good height judaism with trials, a combination of autograft, allograft and synthetic placed anterior in the disc space. The cage was then selected and impacted into place under lateral imaging. The cage was then expanded restoring height, lordosis and alignment. The cage was backfilled with bone graft through a funnel. The maintenance technician 3rd shift was removed and the area inspected. Good cage placement, stable cage and no injuries. Area was irrigated copiously, and meticulous hemostasis achieved. The wound and disc spaces were irrigated and meticulous hemostasis achieved. Laminectomy was completed at L3-4 as well using high speed shantelle and kerrison rongeur for complete decompression from L3-S1. Rods were then sized and selected and placed into S1 screws b/l. Set screws locked these in place and then sequentially reduced into L4 and L5 b/l for reduction of listhesis. This was accomplished. Set screws were then all placed and final tightened. A cross link was selected and placed and final tightened. TPs were then decorticated with a high speed shantelle. The wound was irrigated with 3L acne irrigation, 3L gentamicin irrigation and 3L NSS. Surgical was placed over the dura. Autograft and MagnatOs then placed in the posterolateral gutters and impacted into place. Deep drain placed and secured to the skin. Final images confirmed good placement of hardware and good reduction of listhesis as well as judaism of height and lordosis. Fascia was then closed with #1 PDS. Deep subq closed with 0 Vicryl. Superficial subq closed with 2-0 Vicryl and skin with usman. Wound edges approximated very well. Wound was then cleaned with alcohol and dried. Wounds dressed with adaptic, 4x4, abd and tape. Drain dressing was placed. The patient was then transferred off the table back to their hospital bed a- traumatically. Drains continued to hold suction. They were extubated by the department of anesthesia. They were then transferred to PACU in stable condition having tolerated the procedure with no complications.
[2024-09-23] MEDS: HYDROcodone/APAP 10-325MG 1 EACH TAB PO PRN (15:02)
[2024-09-23] MEDS: buPROPion XL 150 MG TAB.ER.24H PO SCH (15:02)
--- NOTE | 2024-09-23 20:04 | P.CONS ---
History of Present Illness - Reason for Consult Consult date: 09/23/24 Medical management, status post L3-S1 decompression and fusion - History of Present Illness This is a pleasant 49-year-old male who was recently admitted under orthopedic services and is status post revision of L3-S1 decompression and fusion. Patient reports he had previous surgery at another facility and had complications with continued back pain being followed outpatient with Dr. White having issues with hardware and underwent revision as mentioned above yesterday. Patient is working on incentive spirometer and have encouraged to continue using at least 10 times every hour while awake. Continue with pain management along with DVT prophylaxis per orthopedics. Recommend bowel regimen scheduled as well as as needed. Patient reports has been up and voiding with no difficulties, patient reports to not passing much gas and no bowel movement as of yet. Patient is afebrile and white count mildly elevated, likely reactive recommend follow-up labs. Patient maintained on IV hydration with potassium although potassium is 4.5 and will discontinue. Patient is eating and drinking and denies any nausea or vomiting. REVIEW OF SYSTEMS: CONSTITUTIONAL: No fever, no malaise, no fatigue. HEENT: No recent visual problems or hearing problems. Denied any sore throat. CARDIOVASCULAR: No chest pain, orthopnea, PND, no palpitations, no syncope. PULMONARY: No shortness of breath, no cough, no hemoptysis. GASTROINTESTINAL: No diarrhea, no nausea, no vomiting, no abdominal pain. NEUROLOGICAL: No headaches, no weakness, no numbness. HEMATOLOGICAL: Denies any bleeding or petechiae. GENITOURINARY: Denies any burning micturition, frequency, or urgency. MUSCULOSKELETAL/RHEUMATOLOGICAL: Reports significant back pain and some continued tingling and numbness of lower extremities ENDOCRINE: Denies any polyuria or polydipsia. The rest of the 14-point review of systems is negative. PHYSICAL EXAMINATION: GENERAL: The patient is alert and oriented x3, not in any acute distress. Well developed, well nourished. HEENT: Pupils are round and equally reacting to light. EOMI. No scleral icterus. No conjunctival pallor. Normocephalic, atraumatic. No pharyngeal erythema. No thyromegaly. CARDIOVASCULAR: S1 and S2 present. No murmurs, rubs, or gallops. PULMONARY: Chest is clear to auscultation, no wheezing or crackles. ABDOMEN: Soft, nontender, nondistended, normoactive bowel sounds. No palpable organomegaly. MUSCULOSKELETAL: No joint swelling or deformity. EXTREMITIES: No cyanosis, clubbing, or pedal edema. NEUROLOGICAL: Gross neurological examination did not reveal any focal deficits. Diffusely weak SKIN: No rashes. Assessment: Status post revision of L3-S1 decompression and fusion History of ADD/ADHD History of previous decompression and fusion and patient reported issues with hardware GI prophylaxis DVT prophylaxis Full code Plan: Patient admitted under orthopedic services status post revision with decompression and fusion as mentioned above Encouraged incentive spirometer at least 10 times every hour while awake Patient is eating and drinking and denies nausea or vomiting. Will discontinue IV hydration and repeat labs in AM. Home medications reviewed and resumed as appropriate Continue with pain management and DVT prophylaxis per orthopedics Encouraged increase activity as tolerated and working with physical therapy daily LSO brace per orthopedic recommendations while out of bed We will continue to follow along with orthopedics during hospitalization. Thank you kindly for this consultation The impression and plan of care has been dictated by Yvette Quevedo, Nurse Practitioner as directed. Dr. Favio MD I have performed a history and examination and MDM of this patient, discussed the same with the dictator, and agree with the dictator's assessment and plan as written ,documented as a scribe. Based on total visit time, I have performed more than 50% of the visit. Past Medical History Past Medical History: Osteoarthritis (OA) Additional Past Medical History / Comment(s): MIGRAINE HEADACHE. allergies. coughs alot after eating - dx yet. History of Any Multi-Drug Resistant Organisms: None Reported Past Surgical History: Back Surgery, Hernia Repair, Orthopedic Surgery Additional Past Surgical History / Comment(s): RIGHT KNEE ARTHROSCOPIC , VASECTOMY, Back surgery [facility] 01/2024, colonoscopy, egd. [facility] Past Anesthesia/Blood Transfusion Reactions: Previous Problems w/ Anesthesia Additional Past Anesthesia/Blood Transfusion Reaction / Comm: "TOOK MORE TO PUT HIM TO SLEEP". During back surgery at [facility] 01/2024 pt states his pupils stopped reacting, he was narcaned twice, and CT was done to rule out a stroke ( negative) 2 hrs surgery turned into 8 hrs. pt has medical record from that surgery and will bring with him. (no issues with any other surgeries) Past Psychological History: ADD/ADHD, Anxiety, Depression Smoking Status: Never smoker Past Alcohol Use History: Occasional Past Drug Use History: None Reported - Past Family History Mother Family Medical History: Cancer, Deep Vein Thrombosis (DVT) Medications and Allergies Home Medications Medication Instructions Recorded Confirmed Type ALPRAZolam [Xanax] 0.5 mg PO TID PRN 04/04/22 09/22/24 History Dextroamphetamine/Amphetamine 20 mg PO BID 04/04/22 09/22/24 History [Adderall] Ibuprofen [Motrin] 800 mg PO Q8HR PRN 04/04/22 09/17/24 History Hydrocodone/Acetaminophen 1 tab PO TID PRN 09/17/24 09/22/24 History [Hydrocodone/Acetaminophen 7.5-325] Montelukast [Singulair] 10 mg PO DAILY PRN 09/17/24 09/22/24 History Tirzepatide [Zepbound] 12.5 mg SQ WEEKLY 09/17/24 09/17/24 History buPROPion XL [Wellbutrin XL] 150 mg PO DAILY 09/17/24 09/22/24 History Allergies Allergy/AdvReac Type Severity Reaction Status Date / Time adhesive tape Allergy rash-peels Verified 09/22/24 12:16 skin. DUST Allergy Rash/Hives Uncoded 09/22/24 12:16 maple AdvReac Rash/Hives Uncoded 09/22/24 12:16 Physical Exam Vitals: Vital Signs Temp Pulse Pulse Resp BP Pulse Ox 09/23/24 19:41 98.8 F 93 16 131/72 96 09/23/24 13:47 98.3 F 92 17 123/75 98 09/23/24 07:07 97.8 F 77 18 111/70 97 09/23/24 00:09 97.7 F 88 17 117/77 98 09/22/24 23:54 85 111/74 98 09/22/24 23:39 86 109/72 94 L 09/22/24 23:24 85 110/75 94 L 09/22/24 23:09 82 107/72 94 L 09/22/24 22:54 94 109/77 98 09/22/24 22:39 88 111/71 98 09/22/24 22:24 87 110/71 96 09/22/24 22:07 97.7 F 88 130/78 95 09/22/24 21:45 94 16 114/65 94 L 09/22/24 21:33 93 16 108/56 97 09/22/24 21:18 94 16 113/61 97 09/22/24 21:02 103 H 16 131/71 98 09/22/24 20:45 90 16 122/67 98 09/22/24 20:30 88 18 125/78 98 09/22/24 20:26 98.4 F 91 18 110/66 98 Intake and Output 09/23/24 09/23/24 09/23/24 06:59 14:59 22:59 Output Total 150 600 380 Balance -150 -600 -380 Output: Drainage 150 180 Lower Back 150 180 Urine 600 200 Other: Voiding Method Indwelling Catheter Weight 89.9 kg Results CBC & Chem 7: 09/23/24 03:14 09/23/24 03:14 Labs: Abnormal Lab Results - Last 24 Hours (Table) 09/23/24 09/23/24 Range/Units 03:14 03:14 WBC 11.64 H (4.50-10.00) X 10*3/uL RBC 3.85 L (4.40-5.60) X 10*6/uL Hgb 11.6 L (13.0-17.0) g/dL Hct 34.1 L (39.6-50.0) % Immature Gran # 0.07 H (0.00-0.04) X 10*3/uL Neutrophils # 9.77 H (1.80-7.70) X 10*3/uL Eosinophils # 0 L (0.04-0.35) X 10*3/uL Carbon Dioxide 21.5 L (21.6-31.8) mmol/L Glucose 130 H (70-110) mg/dL Calcium 8.2 L (8.7-10.3) mg/dL
[2024-09-23] MEDS ORDERED: NON FORMULARY DRUG (Dextroamphetamine/Amphetamine [Adderall] 20 MG Tablet) PO SCH (21:00)
[2024-09-23] MEDS: ASPIRIN 81 MG PO SCH (21:25)
[2024-09-24] MEDS: PANTOPRAZOLE 40 MG TABLET PO SCH (06:32)
--- NOTE | 2024-09-24 08:05 | CT ---
EXAMINATION TYPE: CT lumbar spine wo con DATE OF EXAM: 09/24/2024 7:07 AM COMPARISON: CLINICAL INDICATION: Male, 49 years old with history of s/p lumbar fusion; PHH, s/p lumbar fusion TECHNIQUE: Unenhanced CT of the lumbar spine was performed. Bone and soft tissue window settings are submitted as well as coronal and sagittal reconstructions. CT DLP: 1203.[address] CTDI: mGy Automated exposure control for dose reduction was used. FINDINGS: L1-L2: Normal disc space height. No disc herniation protrusion or central stenosis. No facet joint arthropathy. No evidence for foraminal encroachment. L2-L3: Normal disc space height. No disc herniation protrusion or central stenosis. No facet joint arthropathy. No evidence for foraminal encroachment. L3-L4: Postoperative changes of lumbar laminectomy and fusion. Pedicular screws are seen bilaterally. Intervertebral spacer is in place. Postoperative alignment is anatomic. Postsurgical soft tissue suraj nges noted. Streak artifact limits evaluation. L4-L5: Postoperative changes of lumbar laminectomy and fusion. Pedicular screws are seen bilaterally. Intervertebral spacer is in place. Postoperative alignment is anatomic. Postsurgical soft tissue suraj nges noted. Streak artifact limits evaluation. L5-S1: Postoperative changes of lumbar laminectomy and fusion. Pedicular screws are seen bilaterally. Intervertebral spacer is in place. Postoperative alignment is anatomic. Postsurgical soft tissue suraj nges noted. Streak artifact limits evaluation. IMPRESSION: Status post lumbar laminectomy and fusion at L3-L5 S1. [facility], , 09/24/2024 8:02 AM
[2024-09-24 08:50] LABS: Basophils % (A) 0 %; Eosinophils # (A) 0.1 k/uL (0-0.7); Eosinophils % (A) 1 %; HCT 32.7 % (39.0-53.0); HGB 11.1 gm/dL (13.0-17.5); Lymphocytes # (A) 1.2 k/uL (1.0-4.8); Lymphocytes % (A) 17 %; MCH 30.3 pg (25.0-35.0); MCHC 33.8 g/dL (31.0-37.0); MCV 89.4 fL (80.0-100.0); Mean Platelet Volume 7.6; Monocytes # (A) 0.4 k/uL (0-1.0); Monocytes % (A) 5 %; Neutrophils # (A) 5.6 k/uL (1.3-7.7); Neutrophils % (A) 76 %; Platelet Count 195 k/uL (150-450); RBC 3.66 m/uL (4.30-5.90); RDW 14.5 % (11.5-15.5); WBC 7.4 k/uL (3.8-10.6)
[2024-09-24 09:04] LABS: African American GFR (CKD) >90 (>60 ml/min/1.73 sqM); Anion Gap 4 mmol/L; Blood Urea Nitrogen 12 mg/dL (9-20); Calcium 7.9 mg/dL (8.4-10.2); Carbon Dioxide 27 mmol/L (22-30); Chloride 105 mmol/L (98-107); Glucose 122 mg/dL (74-99); Non-African American GFR(CKD) >90 (>60 ml/min/1.73 sqM); Sodium 136 mmol/L (137-145)
--- NOTE | 2024-09-24 10:57 | P.PN ---
Subjective Progress Note Date: 09/24/24 Principal diagnosis: Status post revision L3-S1 decompression and fusion Patient is a 49-year-old male who was evaluated at bedside, is present. He is resting comfortably in his chair. Patient's back pain is currently controlled with current medicine regimen. Urinary catheter was removed yesterday, he is urinating with no difficulties. Passing gas at this time. Pain continues to put out moderate bloody serosanguineous fluid. he denies headaches, lightheadedness, chest pain or shortness of breath Objective - Vital Signs Vital signs: Vital Signs Temp 98.1 F 09/24/24 07:07 Pulse 76 09/24/24 07:07 Resp 18 09/24/24 07:07 BP 140/74 09/24/24 07:07 Pulse Ox 98 09/24/24 07:07 FiO2 Intake & Output 09/23/24 09/24/24 09/24/24 18:59 06:59 18:59 Intake Total 540 Output Total 980 100 60 Balance -980 440 -60 Intake: Oral 540 Output: Drainage 180 100 60 Lower Back 180 100 60 Urine 800 Other: Voiding Method Indwelling Catheter Toilet Urinal # Voids 2 - Exam Gen: AOx3, NAD VSS stable at this time Integument: Postop dressing and Hemovac in good position and condition Palpation: Mild tenderness with palpation to the lumbar spine ROM: Full range of motion in all major muscle groups of the bilateral upper and lower extremities Sensory Exam: Senory exam to light touch is intact C5-T1 Senosry exam to light touch is intact L2-S1, dermatome deficit noted in L4-S1 bilaterally Motor: 4/5 strength appreciated bilateral lower extremities with hip flexion, knee extension, knee flexion, plantarflexion, dorsiflexion, EHL, FHL Reflexes: 2/4 in all UE and LE Negative Joesph's bilaterally Negative clonus bilaterally - Labs CBC & Chem 7: 09/24/24 08:02 09/24/24 08:02 Labs: Abnormal Lab Results - Last 24 Hours (Table) 09/24/24 09/24/24 Range/Units 08:02 08:02 RBC 3.66 L (4.30-5.90) m/uL Hgb 11.1 L (13.0-17.5) gm/dL Hct 32.7 L (39.0-53.0) % Sodium 136 L (137-145) mmol/L Glucose 122 H (74-99) mg/dL Calcium 7.9 L (8.4-10.2) mg/dL Assessment and Plan Assessment: Postoperative day #2 status post revision L3-S1 decompression and fusion Plan: Pain control, continue with current medications. 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 plan for dressing change and drain removal on 09/25/2024 LSO brace when up and ambulating, weight-bear as tolerated with walker Continue PT/OT Encourage incentive spirometer Medical recommendations appreciated Discharge planning: anticipate discharge to home on 09/25/2024 Time with Patient: Less than 30
[2024-09-24] MEDS: HYDROmorphone 1 MG/ML 1 ML SYRINGE IVP PRN (14:44)
[2024-09-24] MEDS: MAGNESIUM HYDROXIDE 2,400 MG/30 ML CUP PO PRN (20:33)
[2024-09-24] MEDS: oxyCODONE-APAP 7.5-325MG 1 EACH TAB PO PRN (22:14)
--- NOTE | 2024-09-25 06:54 | P.PN ---
Subjective Progress Note Date: 09/24/24 - Reason for Consult Consult date: 09/23/24 Medical management, status post L3-S1 decompression and fusion - History of Present Illness This is a pleasant 49-year-old male who was recently admitted under orthopedic services and is status post revision of L3-S1 decompression and fusion. Patient reports he had previous surgery at another facility and had complications with continued back pain being followed outpatient with Dr. White having issues with hardware and underwent revision as mentioned above yesterday. Patient is working on incentive spirometer and have encouraged to continue using at least 10 times every hour while awake. Continue with pain management along with DVT prophylaxis per orthopedics. Recommend bowel regimen scheduled as well as as needed. Patient reports has been up and voiding with no difficulties, patient reports to not passing much gas and no bowel movement as of yet. Patient is afebrile and white count mildly elevated, likely reactive recommend follow-up labs. Patient maintained on IV hydration with potassium although potassium is 4.5 and will discontinue. Patient is eating and drinking and denies any nausea or vomiting. 09/24/2024 Patient is seen in follow-up with orthopedics as attending status post decompression and fusion. Patient continues to report significant pain and gene ralized weakness working on improving pain management and attempting to avoid IV narcotics. I encouraged increase activity as tolerated with sitting up more frequently and walking. Continue using incentive spirometer. Patient reports plan is to return home with family once stabilized and discharged. Recommend to continue with scheduled bowel regimen as well as as needed. No reported chest pain, shortness of breath, nausea or vomiting at this time. Review of systems: Constitutional: No reports of fatigue, fever, or chills Cardiovascular: No reports of chest pain or palpitations Respiratory: No reports of shortness of breath or cough GI: No reports of nausea, vomiting, or diarrhea : No reports of dysuria or retention Neurovascular: reports of generalized weakness some lower extremity decree sensation and continued back pain All medications have been reviewed The rest of the 14-point review of systems is negative. PHYSICAL EXAMINATION: GENERAL: The patient is alert and oriented x3, not in any acute distress. Well developed, well nourished. HEENT: Pupils are round and equally reacting to light. EOMI. No scleral icterus. No conjunctival pallor. Normocephalic, atraumatic. No pharyngeal erythema. No thyromegaly. CARDIOVASCULAR: S1 and S2 present. No murmurs, rubs, or gallops. PULMONARY: Chest is clear to auscultation, no wheezing or crackles. ABDOMEN: Soft, nontender, nondistended, normoactive bowel sounds. No palpable organomegaly. MUSCULOSKELETAL: No joint swelling or deformity. EXTREMITIES: No cyanosis, clubbing, or pedal edema. NEUROLOGICAL: Gross neurological examination did not reveal any focal deficits. Diffusely weak SKIN: No rashes. Assessment: Status post revision of L3-S1 decompression and fusion History of ADD/ADHD History of previous decompression and fusion and patient reported issues with hardware GI prophylaxis DVT prophylaxis Full code Plan: Patient admitted under orthopedic services status post revision with decompression and fusion as mentioned above Encouraged incentive spirometer at least 10 times every hour while awake Patient is eating and drinking and denies nausea or vomiting. Home medications reviewed and resumed as appropriate Continue with pain management and DVT prophylaxis per orthopedics Encouraged increase activity as tolerated and working with physical therapy daily LSO brace per orthopedic recommendations while out of bed Patient continues to report significant pain and working with orthopedics regarding pain management. Recommend limiting IV narcotic use with plans on going home. Patient is medically stable once cleared by orthopedics for discharge We will continue to follow along with orthopedics during hospitalization. Thank you kindly for this consultation The impression and plan of care has been dictated by Yvette Quevedo, Nurse Practitioner as directed. Dr. Favio MD I have performed a history and examination and MDM of this patient, discussed the same with the dictator, and agree with the dictator's assessment and plan as written ,documented as a scribe. Based on total visit time, I have performed more than 50% of the visit. Objective - Vital Signs Vital signs: Vital Signs Temp 98.1 F 09/24/24 07:07 Pulse 76 09/24/24 07:07 Resp 18 09/24/24 07:07 BP 140/74 09/24/24 07:07 Pulse Ox 98 09/24/24 07:07 FiO2 Intake & Output 09/23/24 09/24/24 09/24/24 18:59 06:59 18:59 Intake Total 540 Output Total 980 100 60 Balance -980 440 -60 Intake: Oral 540 Output: Drainage 180 100 60 Lower Back 180 100 60 Urine 800 Other: Voiding Method Indwelling Catheter Toilet Urinal # Voids 2 - Labs CBC & Chem 7: 09/24/24 08:02 09/24/24 08:02 Labs: Abnormal Lab Results - Last 24 Hours (Table) 09/24/24 09/24/24 Range/Units 08:02 08:02 RBC 3.66 L (4.30-5.90) m/uL Hgb 11.1 L (13.0-17.5) gm/dL Hct 32.7 L (39.0-53.0) % Sodium 136 L (137-145) mmol/L Glucose 122 H (74-99) mg/dL Calcium 7.9 L (8.4-10.2) mg/dL
[2024-09-25 07:28] LABS: Basophils % (A) 0 %; Eosinophils # (A) 0.1 k/uL (0-0.7); Eosinophils % (A) 2 %; HCT 33.4 % (39.0-53.0); HGB 11.1 gm/dL (13.0-17.5); Lymphocytes # (A) 0.9 k/uL (1.0-4.8); Lymphocytes % (A) 11 %; MCH 29.8 pg (25.0-35.0); MCHC 33.2 g/dL (31.0-37.0); MCV 89.7 fL (80.0-100.0); Monocytes # (A) 0.4 k/uL (0-1.0); Monocytes % (A) 5 %; Neutrophils # (A) 6.4 k/uL (1.3-7.7); Neutrophils % (A) 81 %; Platelet Count 186 k/uL (150-450); RBC 3.73 m/uL (4.30-5.90); RDW 13.9 % (11.5-15.5)
[2024-09-25 07:29] LABS: African American GFR (CKD) >90 (>60 ml/min/1.73 sqM); Anion Gap 4 mmol/L; Blood Urea Nitrogen 14 mg/dL (9-20); Calcium 8.4 mg/dL (8.4-10.2); Carbon Dioxide 29 mmol/L (22-30); Chloride 102 mmol/L (98-107); Glucose 100 mg/dL (74-99); Magnesium 1.7 mg/dL (1.6-2.3); Non-African American GFR(CKD) >90 (>60 ml/min/1.73 sqM); Potassium 4.5 mmol/L (3.5-5.1); Sodium 135 mmol/L (137-145)
[2024-09-25 07:36] VITALS: BP 145/83; PULSE 91; RESP 18; TEMP 98.4
--- NOTE | 2024-09-25 11:13 | P.PN ---
Subjective Progress Note Date: 09/25/24 Principal diagnosis: Status post revision L3-S1 decompression and fusion Patient is a 49-year-old male who was evaluated at bedside, is present. He is resting comfortably in his chair. Patient's back pain is currently controlled with current medicine regimen. He continues to ambulate with the assistance of the walker LSO brace.. he denies headaches, lightheadedness, chest pain or shortness of breath Objective - Vital Signs Vital signs: Vital Signs Temp 98.4 F 09/25/24 07:35 Pulse 91 09/25/24 07:35 Resp 18 09/25/24 07:35 BP 145/83 09/25/24 07:35 Pulse Ox 96 09/25/24 07:35 FiO2 Intake & Output 09/24/24 09/25/24 09/25/24 18:59 06:59 18:59 Output Total 460 50 Balance -460 -50 Output: Drainage 60 50 Lower Back 60 50 Urine 400 Other: Voiding Method Toilet Urinal # Voids 1 # Bowel Movements 1 - Exam Gen: AOx3, NAD VSS stable at this time Integument: Postop dressing change today at bedside, usman are all in good position and condition Palpation: Mild tenderness with palpation to the lumbar spine ROM: Full range of motion in all major muscle groups of the bilateral upper and lower extremities Sensory Exam: Senory exam to light touch is intact C5-T1 Senosry exam to light touch is intact L2-S1, dermatome deficit noted in L4-S1 bilaterally Motor: 4/5 strength appreciated bilateral lower extremities with hip flexion, knee extension, knee flexion, plantarflexion, dorsiflexion, EHL, FHL Reflexes: 2/4 in all UE and LE Negative Joesph's bilaterally Negative clonus bilaterally - Labs CBC & Chem 7: 09/25/24 07:00 09/25/24 07:00 Labs: Abnormal Lab Results - Last 24 Hours (Table) 09/25/24 09/25/24 Range/Units 07:00 07:00 RBC 3.73 L (4.30-5.90) m/uL Hgb 11.1 L (13.0-17.5) gm/dL Hct 33.4 L (39.0-53.0) % Lymphocytes # 0.9 L (1.0-4.8) k/uL Sodium 135 L (137-145) mmol/L Glucose 100 H (74-99) mg/dL Assessment and Plan Assessment: Postoperative day #3 status post revision L3-S1 decompression and fusion Plan: Pain control, plan for discharge with Percocet 7.5 mg / 325 mg, Valium 5 mg, gabapentin 300 mg. Will send with multiple stool softeners. DVT prophylaxis, aspirin 81 mg daily Wound care, dressing instructions were discussed this to include showering. Hemovac drain will be left in place, plan for follow-up in office on Saturday for removal LSO brace when up and ambulating, weight-bear as tolerated with walker Continue PT/OT Encourage incentive spirometer Medical recommendations appreciated Discharge planning: Plan for discharge home today Time with Patient: Less than 30
--- NOTE | 2024-09-26 11:24 | P.DS ---
Providers Date of admission: 09/22/24 11:35 Expected date of discharge: 09/25/24 Attending physician: Rasheed White DO Consults: 09/22/24 20:37 Consult Physician Routine Consulting Provider: Martínez Salgado Consult Reason/Comments: Medical Management Do you want consulting provider notified?: Yes, Notify in am Primary care physician: Luz Maria Mac Hospital Course: Date of admission: 09/22/2024 Date of discharge: 09/25/2024 Admission diagnosis: Status post revision L3-S1 posterior lateral decompression and fusion Discharge diagnosis: Same Attending physician: Dr. White Surgical procedures: Revision L3-S1 posterior lateral decompression and fusion Brief history: Patient is a 49-year-old male who is being followed in the outpatient setting by our orthopedic spine team. 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 Patient failed all conservative measures. Patient was scheduled for a revision surgery with Dr. Koehler's and for 09/22/2024 Hospital course: Details of patient's surgery can be found in operative report. Patient tolerated the procedure well and was subsequently transported to orthopedic floor. Patient's orthopeidc and medical care was provided daily. Patient had daily laboratory tests performed for evaluation of overall blood counts. Patient had daily physical therapy to include strengthening range of motion as well as education with walker ambulation. Patient was treated with REGINALDO hose, compression stockings and aspirin 81 mg for their postoperative DVT prophylaxis during their inpatient stay. Patient was noted to have a relatively uneventful postoperative course. Patient reported satisfactory pain control with oral pain medications by postoperative day 2. Patient showed satisfactory progress with physical therapy. Patient moved steadily through the program and had no difficulty meeting the goals by postoperative day 3. Given patient's otherwise satisfactory course and having met physical therapy goals, plan is to discharge patient home on postoperative day 3. Discharge condition/disposition: Patient will be discharged home in stable condition. Discharge medications: Instructions are given on resumption of patient's normal daily medications per primary care recommendation, in addition patient will be prescribed Percocet 7.5 mg / 325 mg, gabapentin 300 mg, Valium 5 mg, senna S, MiraLAX 17 g, Duricef 500 mg. Spine Discharge and Recovery Instructions Medications: See medication list All medication refills should be obtained through your primary care doctor or your clinic spine surgeon. Please discuss prescription refills at your follow up appointment. Do not call the hospital for medication refills. Dressing: Leave your dressing in place for a total of 5 days post operatively. Then you may remove your dressing and leave open to air. Keep the area clean and if not able to keep area clean, then cover with sterile gauze and tape. Showering: You may shower 3 days after your procedure allowing soap and water to run over incision. Do not scrub. Do not soak. Blot dry. Follow up: Please confirm a follow up appointment with your surgeon 3 weeks post operatively. Please make an appointment to follow up with your PCP in 1-2 weeks after surgery for evaluation '3 phase, 3-week plan' POST OP WEEKS 1-3 1. Lifting/carrying/pushing/pulling limited to less than 5 pounds. 2. Do not sit for longer than 15 minutes at one time. Get up and walk around. Prolonged sitting is NOT advised. If you lay down, see if you can tolerate laying down on you front (belly side) 3. Walk for periods of 15 minutes = 1 mile but no longer; do it multiple times times each day. 4. Ice your low back after activity. POST OP WEEKS 3-6 1. Lifting limited to less than 20 pounds. 2. Do not sit for longer than 30 minutes at a time. Frequently change po sitions. Use a sit-to stand workstation or take frequent breaks from sitting if you have returned to work. 3. Walk for 30 minutes each day. If possible, do these three or more times a day POST OP WEEKS 6+ At your 6-week appointment we will give you a physical therapy referral to focus on a core stabilization and strengthening program. You should also work on leg & buttock strengthening, hamstring & quadriceps stretching, and continue a low impact aerobic activity program such as swimming, walking, or riding a stationary bicycle. During the initial 6 weeks after your surgery, you are at the highest risk of re-injuring your spine. You should generally avoid BLT's (bending, lifting and twisting combination motions) and follow the above guidelines to reduce the chance of reinjury. You can anticipate post op appointments in our office at approximately 3 weeks and 6 weeks after your surgery. INCISION CARE: If your incision is not draining you do NOT need to cover it with a dressing. Keep your incision clean, dry and intact. In most cases, we apply skin glue, usman or sutures to the incision at the time of surgery. This will be like a crust or have the appearance of a scab and will fall off in time on its own. The stitches or usman need to be removed at 3 weeks post op appointment. You may begin to shower 3 days after surgery (this allows the glue to vidales well). However, please avoid scrubbing the incision site or peeling off any of the skin glue. This will ensure optimal healing of your incision. Also, during this time avoid soaking the incision area in water - this includes swimming pools, hot tubs or baths. No ointments, lotions or oils on the incision until your surgeon allows. Leave usman, sutures or glue in place. Neurological dysfunction that comes on suddenly can also be a sign of a stroke. Below some common symptoms of a stroke are listed: B - balance difficulty such as sudden onset walking or leaning to one side - NEW E - eye problem such as sudden double vision or trouble seeing on one side - NEW F - Facial weakness or numbness on one side - NEW A - Arm or leg weakness or numbness on one side - NEW S - Slurred speech or difficulty with word finding - NEW T - Time is BRAIN! Call 911 as soon as you recognize these symptoms Diet: Consume a regular diet rich in vegetables and lean protein such as chicken or fish. You should consume in a ratio of approximately 20% fats|40% carbohydrates|40%protein. Vegetables, sweet potatoes, brown rice or quinoa are examples of good carbohydrates. Chips, white bread, cookies and sweets/sugar are examples of bad carbohydrates. Limit your bad carbs, go wild with good carbs. "Life's Simple 7" Guidelines as per [place] [employer] These will help you reclaim your life after surgery and duct layer helper in your recovery, keeping in mind your restrictions. (1) Get Active. Physical activity can help people lose weight, control high blood pressure and cholesterol, feel emotionally better, and sleep better. (2) Control Cholesterol. Avoid a diet high in saturated fat, trans fat, & cholesterol. Limit whole milk & cream, ice cream, butter, egg yolks, processed meats (like sausage and hot dogs), and fatty meats. Choose healthy foods that are low in saturated fat, trans fat and cholesterol which include: Fruits and vegetables, fiber rich grain products (like whole grain pasta and brown rice), lean meat such as chicken, fish, nuts, seeds, and legumes. (3) Eat Better. Eat small portions. Shop at the grocery with a list and do not stray from it. Tips for a healthy diet include: Limit sodium intake to less than 1500mg daily, avoid prepackaged, processed, and fast foods, choose a diet rich in fruits, vegetables, and whole grain, high fiber foods, and limit saturated & cholesterol in your diet. (4) Manage Blood Pressure. If you have high blood pressure, you should have a cuff at home so that you can check your blood pressure regularly. Be sure you have a good cuff. An arm one is generally better than a wrist one. Bring the cuff to a doctor's appointment to validate that the measurements that your cuff are taking are accurate. Take your blood pressure twice daily when you are sitting down and relaxing. Record the numbers in a log and bring this log with you to your doctors' appointments. (5) Lose Weight if your BMI is above 25. A healthy BMI is between 19-25. To calculate Your BMI, you may use a Standard BMI Calculator on the NIH BMI website: <www.nhlbi.nih.gov/guidelines/obesity/BMI/bmicalc.htm>. Weigh oneself daily. If you are overweight, set a goal to lose weight. A pound a week loss if needed is a good target. (6) Reduce Blood Sugar. Limit foods and liquids with "added sugars." (Added sugars include sucrose, fructose, glucose, maltose, dextrose, high fructose corn syrup, corn syrup, concentrated fruit juice and honey). (7) Stop Smoking. If you smoke, quitting smoking is one of the best things that you can do for your health. Smoking increases your risk of heart attack, stroke, and peripheral vascular disease, which is a build-up of plaque in your arteries. Please discard all the cigarettes and lighters in your house. Have a plan for what you will do when you have the urge to smoke. Direct and second- hand smoke shortens your life as well as the lives of your family, friends and others around you. For your health and the health of those around you, please consider quitting! Proper Bending Body Mechanics: Maintain a wide stance with one foot slightly in front of the other. Keep your back straight. Bend utilizing the strength in your hips and knees. Do not bend at the waist. Maintain the lifted object at your waist-level close to your body. Avoid lifting weight that causes immediately pain or pain anywhere in the body afterwards. Smoking/Nicotine If there was ever one thing that you could do to increase your overall health, decrease your risk of cardiovascular problems by about 39% the second you make the choice, it is to STOP SMOKING. Your body's most instant gratification is the second you stop smoking. We have all heard the studies, read the articles but it is true, smoking is extremely bad for your overall health, and moreover it is detrimental to your bone health. Nicotine, IN ANY FORM, kills bone cells, prevents your body from healing fractures, and significantly prolongs healing after surgery. In spine surgery specifically, it increases your risk of not healing your bones to create a fusion and increases your risk of having a revision surgery due to this up to 60%. I know it is hard. I know it feels impossible. But there are ways. Take control of your life. We are here to help you through it. And when you are ready, ask us and we can direct you to help if you desire. Use the START Plan to Quit Smoking (please visit the Helpguide.org website listed below for more information): S = Set a quit date. Choose a date within the next 2 weeks, so you have enough time to prepare without losing your motivation to quit. If you mainly smoke at work, quit on the weekend, so you have a few days to adjust to the change. T = Tell family, friends, and co-workers that you plan to quit. Let your friends and family in on your plan to quit smoking and tell them you need their support and encouragement to stop. Look for a quit janey who wants to stop smoking as well. You can help each other get through the rough times. A = Anticipate and plan for the challenges you'll face while quitting. Most people who begin smoking again do so within the first 3 months. You can help yourself make it through by preparing ahead for common challenges, such as nicotine withdrawal and cigarette cravings. R = Remove cigarettes and other tobacco products from your home, car, and work. Throw away all your cigarettes (no emergency pack!), lighters, ashtrays, and matches. Wash your clothes and freshen up anything that smells like smoke. Shampoo your car, clean your drapes and carpet, and steam your furniture. T = Talk to your doctor about getting help to quit. Your doctor can prescribe medication to help with withdrawal and suggest other alternatives. If you can't see a doctor, you can get many products over the counter at your local pharmacy or grocery store, including the nicotine patch, nicotine lozenges, and nicotine gum. Resources for Quitting Smoking: <https://www.[place].gov/documents/[facility]/Quit_Tobacco_Resources_for_patients_313 480_7.pdf> Supplementation: Take recommended dosages of Vitamin D and Calcium to help fortify your bones and help them to heal. See your health maintenance packet for dosages and recommended levels. DVT/VTE prophylaxis: You will be given compression stockings from the hospital. Wear these daily for the first two weeks after surgery. You may take them off at night. You may be prescribed a medication to help thin your blood. Take this as directed. If you are not prescribed this medication, early and frequent ambulation has been shown to be the best prophylaxis to deep vein thrombosis and sequelae related to this event. Procedures: Revision L3-S1 posterior lateral decompression and fusion Patient Condition at Discharge: Good Plan - Discharge Summary Discharge Rx Participant: No New Discharge Prescriptions: New cefaDROXiL [Duricef] 500 mg PO Q12HR 5 Days #10 cap Gabapentin [Neurontin] 300 mg PO TID #60 cap Sennosides/Docusate Sodium [Senna-S 8.6-50 mg Tablet] 2 each PO DAILY PRN #30 tablet PRN Reason: Constipation polyethylene glycoL 3350 [Miralax] 17 gm PO DAILY PRN #21 packet PRN Reason: Constipation oxyCODONE HCL/ACETAMINOPHEN [Percocet 7.5-325 mg] 1 tab PO Q6HR PRN 7 Days #28 tab PRN Reason: Pain diazePAM [Valium] 5 mg PO BID PRN #21 tab PRN Reason: Muscle Spasm Discontinued Hydrocodone/Acetaminophen [Hydrocodone/Acetaminophen 7.5-325] 1 tab PO TID PRN PRN Reason: Pain No Action ALPRAZolam [Xanax] 0.5 mg PO TID PRN PRN Reason: ANXIETY Dextroamphetamine/Amphetamine [Adderall] 20 mg PO BID buPROPion XL [Wellbutrin XL] 150 mg PO DAILY Tirzepatide [Zepbound] 12.5 mg SQ WEEKLY Ibuprofen [Motrin] 800 mg PO Q8HR PRN PRN Reason: Pain Montelukast [Singulair] 10 mg PO DAILY PRN PRN Reason: allergies Discharge Medication List ALPRAZolam [Xanax] 0.5 mg PO TID PRN 04/04/22 [History] Dextroamphetamine/Amphetamine [Adderall] 20 mg PO BID 04/04/22 [History] Ibuprofen [Motrin] 800 mg PO Q8HR PRN 04/04/22 [History] Montelukast [Singulair] 10 mg PO DAILY PRN 09/17/24 [History] Tirzepatide [Zepbound] 12.5 mg SQ WEEKLY 09/17/24 [History] buPROPion XL [Wellbutrin XL] 150 mg PO DAILY 09/17/24 [History] Gabapentin [Neurontin] 300 mg PO TID #60 cap 09/25/24 [Rx] Sennosides/Docusate Sodium [Senna-S 8.6-50 mg Tablet] 2 each PO DAILY PRN #30 tablet 09/25/24 [Rx] cefaDROXiL [Duricef] 500 mg PO Q12HR 5 Days #10 cap 09/25/24 [Rx] diazePAM [Valium] 5 mg PO BID PRN #21 tab 09/25/24 [Rx] oxyCODONE HCL/ACETAMINOPHEN [Percocet 7.5-325 mg] 1 tab PO Q6HR PRN 7 Days #28 tab 09/25/24 [Rx] polyethylene glycoL 3350 [Miralax] 17 gm PO DAILY PRN #21 packet 09/25/24 [Rx] Follow up Appointment(s)/Referral(s): Luz Maria Mac DO [Primary Care Provider] - 1 Week Rasheed White DO [Doctor of Osteopathic Medicine] - 3 Days Patient Instructions/Handouts: Hemovac Drain Care (DC) Activity/Diet/Wound Care/Special Instructions: Spine Discharge and Recovery Instructions Medications: See medication list All medication refills should be obtained through your primary care doctor or your clinic spine surgeon. Please discuss prescription refills at your follow up appointment. Do not call the hospital for medication refills. Dressing: Leave your dressing in place for a total of 5 days post operatively. Then you may remove your dressing and leave open to air. Keep the area clean and if not able to keep area clean, then cover with sterile gauze and tape. Showering: You may shower 3 days after your procedure allowing soap and water to run over incision. Do not scrub. Do not soak. Blot dry. Follow up: Please confirm a follow up appointment with your surgeon 3 weeks post operatively. Please make an appointment to follow up with your PCP in 1-2 weeks after surgery for evaluation '3 phase, 3-week plan' POST OP WEEKS 1-3 1. Lifting/carrying/pushing/pulling limited to less than 5 pounds. 2. Do not sit for longer than 15 minutes at one time. Get up and walk around. Prolonged sitting is NOT advised. If you lay down, see if you can tolerate laying down on you front (belly side) 3. Walk for periods of 15 minutes = 1 mile but no longer; do it multiple times times each day. 4. Ice your low back after activity. POST OP WEEKS 3-6 1. Lifting limited to less than 20 pounds. 2. Do not sit for longer than 30 minutes at a time. Frequently change positions. Use a sit-to stand workstation or take frequent breaks from sitting if you have returned to work. 3. Walk for 30 minutes each day. If possible, do these three or more times a day POST OP WEEKS 6+ At your 6-week appointment we will give you a physical therapy referral to focus on a core stabilization and strengthening program. You should also work on leg & buttock strengthening, hamstring & quadriceps stretching, and continue a low impact aerobic activity program such as swimming, walking, or riding a stationary bicycle. During the initial 6 weeks after your surgery, you are at the highest risk of re-injuring your spine. You should generally avoid BLT's (bending, lifting and twisting combination motions) and follow the above guidelines to reduce the chance of reinjury. You can anticipate post op appointments in our office at approximately 3 weeks and 6 weeks after your surgery. INCISION CARE: If your incision is not draining you do NOT need to cover it with a dressing. Keep your incision clean, dry and intact. In most cases, we apply skin glue, usman or sutures to the incision at the time of surgery. This will be like a crust or have the appearance of a scab and will fall off in time on its own. The stitches or usman need to be removed at 3 weeks post op appointment. You may begin to shower 3 days after surgery (this allows the glue to vidales well). However, please avoid scrubbing the incision site or peeling off any of the skin glue. This will ensure optimal healing of your incision. Also, during this time avoid soaking the incision area in water - this includes swimming pools, hot tubs or baths. No ointments, lotions or oils on the incision until your surgeon allows. Leave usman, sutures or glue in place. Neurological dysfunction that comes on suddenly can also be a sign of a stroke. Below some common symptoms of a stroke are listed: B - balance difficulty such as sudden onset walking or leaning to one side - NEW E - eye problem such as sudden double vision or trouble seeing on one side - NEW F - Facial weakness or numbness on one side - NEW A - Arm or leg weakness or numbness on one side - NEW S - Slurred speech or difficulty with word finding - NEW T - Time is BRAIN! Call 911 as soon as you recognize these symptoms Diet: Consume a regular diet rich in vegetables and lean protein such as chicken or fish. You should consume in a ratio of approximately 20% fats|40% carbohydrates|40%protein. Vegetables, sweet potatoes, brown rice or quinoa are examples of good carbohydrates. Chips, white bread, cookies and sweets/sugar are examples of bad carbohydrates. Limit your bad carbs, go wild with good carbs. "Life's Simple 7" Guidelines as per [place] [employer] These will help you reclaim your life after surgery and duct layer helper in your recovery, keeping in mind your restrictions. (1) Get Active. Physical activity can help people lose weight, control high blood pressure and cholesterol, feel emotionally better, and sleep better. (2) Control Cholesterol. Avoid a diet high in saturated fat, trans fat, & cholesterol. Limit whole milk & cream, ice cream, butter, egg yolks, processed meats (like sausage and hot dogs), and fatty meats. Choose healthy foods that are low in saturated fat, trans fat and cholesterol which include: Fruits and vegetables, fiber rich grain products (like whole grain pasta and brown rice), lean meat such as chicken, fish, nuts, seeds, and legumes. (3) Eat Better. Eat small portions. Shop at the grocery with a list and do not stray from it. Tips for a healthy diet include: Limit sodium intake to less than 1500mg daily, avoid prepackaged, processed, and fast foods, choose a diet rich in fruits, vegetables, and whole grain, high fiber foods, and limit saturated & cholesterol in your diet. (4) Manage Blood Pressure. If you have high blood pressure, you should have a cuff at home so that you can check your blood pressure regularly. Be sure you have a good cuff. An arm one is generally better than a wrist one. Bring the cuff to a doctor's appointment to validate that the measurements that your cuff are taking are accurate. Take your blood pressure twice daily when you are sitting down and relaxing. Record the numbers in a log and bring this log with you to your doctors' appointments. (5) Lose Weight if your BMI is above 25. A healthy BMI is between 19-25. To calculate Your BMI, you may use a Standard BMI Calculator on the NIH BMI website: <www.nhlbi.nih.gov/guidelines/obesity/BMI/bmicalc.htm>. Weigh oneself daily. If you are overweight, set a goal to lose weight. A pound a week loss if needed is a good target. (6) Reduce Blood Sugar. Limit foods and liquids with "added sugars." (Added sugars include sucrose, fructose, glucose, maltose, dextrose, high fructose corn syrup, corn syrup, concentrated fruit juice and honey). (7) Stop Smoking. If you smoke, quitting smoking is one of the best things that you can do for your health. Smoking increases your risk of heart attack, stroke, and peripheral vascular disease, which is a build-up of plaque in your arteries. Please discard all the cigarettes and lighters in your house. Have a plan for what you will do when you have the urge to smoke. Direct and second- hand smoke shortens your life as well as the lives of your family, friends and others around you. For your health and the health of those around you, please consider quitting! Proper Bending Body Mechanics: Maintain a wide stance with one foot slightly in front of the other. Keep your back straight. Bend utilizing the strength in your hips and knees. Do not bend at the waist. Maintain the lifted object at your waist-level close to your body. Avoid lifting weight that causes immediately pain or pain anywhere in the body afterwards. Smoking/Nicotine If there was ever one thing that you could do to increase your overall health, decrease your risk of cardiovascular problems by about 39% the second you make the choice, it is to STOP SMOKING. Your body's most instant gratification is the second you stop smoking. We have all heard the studies, read the articles but it is true, smoking is extremely bad for your overall health, and moreover it is detrimental to your bone health. Nicotine, IN ANY FORM, kills bone cells, prevents your body from healing fractures, and significantly prolongs healing after surgery. In spine surgery specifically, it increases your risk of not healing your bones to create a fusion and increases your risk of having a revision surgery due to this up to 60%. I know it is hard. I know it feels impossible. But there are ways. Take control of your life. We are here to help you through it. And when you are ready, ask us and we can direct you to help if you desire. Use the START Plan to Quit Smoking (please visit the Helpguide.org website listed below for more information): S = Set a quit date. Choose a date within the next 2 weeks, so you have enough time to prepare without losing your motivation to quit. If you mainly smoke at work, quit on the weekend, so you have a few days to adjust to the change. T = Tell family, friends, and co-workers that you plan to quit. Let your friends and family in on your plan to quit smoking and tell them you need their support and encouragement to stop. Look for a quit janey who wants to stop smoking as well. You can help each other get through the rough times. A = Anticipate and plan for the challenges you'll face while quitting. Most people who begin smoking again do so within the first 3 months. You can help yourself make it through by preparing ahead for common challenges, such as nicotine withdrawal and cigarette cravings. R = Remove cigarettes and other tobacco products from your home, car, and work. Throw away all your cigarettes (no emergency pack!), lighters, ashtrays, and matches. Wash your clothes and freshen up anything that smells like smoke. Shampoo your car, clean your drapes and carpet, and steam your furniture. T = Talk to your doctor about getting help to quit. Your doctor can prescribe medication to help with withdrawal and suggest other alternatives. If you can't see a doctor, you can get many products over the counter at your local pharmacy or grocery store, including the nicotine patch, nicotine lozenges, and nicotine gum. Resources for Quitting Smoking: <https://www.[place].gov/documents/[facility]/Quit_Tobacco_Resources_for_patients_313 480_7.pdf> Supplementation: Take recommended dosages of Vitamin D and Calcium to help fortify your bones and help them to heal. See your health maintenance packet for dosages and recommended levels. DVT/VTE prophylaxis: You will be given compression stockings from the hospital. Wear these daily for the first two weeks after surgery. You may take them off at night. You may be prescribed a medication to help thin your blood. Take this as directed. If you are not prescribed this medication, early and frequent ambulation has been shown to be the best prophylaxis to deep vein thrombosis and sequelae related to this event. Discharge Disposition: HOME WITH HOME HEALTH SERVICES
--- NOTE | 2024-09-27 11:09 | P.PN ---
Subjective Progress Note Date: 09/25/24 - Reason for Consult Consult date: 09/23/24 Medical management, status post L3-S1 decompression and fusion - History of Present Illness This is a pleasant 49-year-old male who was recently admitted under orthopedic services and is status post revision of L3-S1 decompression and fusion. Patient reports he had previous surgery at another facility and had complications with continued back pain being followed outpatient with Dr. White having issues with hardware and underwent revision as mentioned above yesterday. Patient is working on incentive spirometer and have encouraged to continue using at least 10 times every hour while awake. Continue with pain management along with DVT prophylaxis per orthopedics. Recommend bowel regimen scheduled as well as as needed. Patient reports has been up and voiding with no difficulties, patient reports to not passing much gas and no bowel movement as of yet. Patient is afebrile and white count mildly elevated, likely reactive recommend follow-up labs. Patient maintained on IV hydration with potassium although potassium is 4.5 and will discontinue. Patient is eating and drinking and denies any nausea or vomiting. 09/24/2024 Patient is seen in follow-up with orthopedics as attending status post decompression and fusion. Patient continues to report significant pain and gene ralized weakness working on improving pain management and attempting to avoid IV narcotics. I encouraged increase activity as tolerated with sitting up more frequently and walking. Continue using incentive spirometer. Patient reports plan is to return home with family once stabilized and discharged. Recommend to continue with scheduled bowel regimen as well as as needed. No reported chest pain, shortness of breath, nausea or vomiting at this time. 09/25/2024 Patient is seen in follow-up today with no acute overnight issues noted. Patient reports pain is somewhat managed and continuing with current regimen per orthopedics. Patient is afebrile with no reports of chest pain or shortness of breath. Patient has been tolerating diet and reports the passing gas. Patient is scheduled for discharge today. Patient instructed to follow-up with primary care provider on discharge. Patient follows with Dr. Chery outpatient. Review of systems: Constitutional: No reports of fatigue, fever, or chills Cardiovascular: No reports of chest pain or palpitations Respiratory: No reports of shortness of breath or cough GI: No reports of nausea, vomiting, or diarrhea : No reports of dysuria or retention Neurovascular: reports of generalized weakness with some back discomfort although improving All medications have been reviewed The rest of the 14-point review of systems is negative. PHYSICAL EXAMINATION: GENERAL: The patient is alert and oriented x3, not in any acute distress. Well developed, well nourished. HEENT: Pupils are round and equally reacting to light. EOMI. No scleral icterus. No conjunctival pallor. Normocephalic, atraumatic. No pharyngeal erythema. No thyromegaly. CARDIOVASCULAR: S1 and S2 present. No murmurs, rubs, or gallops. PULMONARY: Chest is clear to auscultation, no wheezing or crackles. ABDOMEN: Soft, nontender, nondistended, normoactive bowel sounds. No palpable organomegaly. MUSCULOSKELETAL: No joint swelling or deformity. EXTREMITIES: No cyanosis, clubbing, or pedal edema. NEUROLOGICAL: Gross neurological examination did not reveal any focal deficits. Diffusely weak SKIN: No rashes. Assessment: Status post revision of L3-S1 decompression and fusion History of ADD/ADHD History of previous decompression and fusion and patient reported issues with hardware GI prophylaxis DVT prophylaxis Full code Plan: Patient admitted under orthopedic services status post revision with decompression and fusion as mentioned above Encouraged incentive spirometer at least 10 times every hour while awake Patient is eating and drinking and denies nausea or vomiting. Home medications reviewed and resumed as appropriate Continue with pain management and DVT prophylaxis per orthopedics Encouraged increase activity as tolerated and working with physical therapy daily LSO brace per orthopedic recommendations while out of bed Patient is scheduled for discharge today and will continue with current pain regimen and DVT prophylaxis per orthopedics. Recommend follow-up with Dr. Chery outpatient Patient is medically stable for discharge once cleared by orthopedics. We will continue to follow along with orthopedics during hospitalization. Thank you kindly for this consultation The impression and plan of care has been dictated by Yvette Quevedo, Nurse Practitioner as directed. Dr. Favio MD I have performed a history and examination and MDM of this patient, discussed the same with the dictator, and agree with the dictator's assessment and plan as written ,documented as a scribe. Based on total visit time, I have performed more than 50% of the visit. Objective - Vital Signs Vital signs: Vital Signs Temp 98.4 F 09/25/24 07:35 Pulse 91 09/25/24 07:35 Resp 18 09/25/24 07:35 BP 145/83 09/25/24 07:35 Pulse Ox 96 09/25/24 07:35 FiO2 Intake & Output 09/24/24 09/25/24 09/25/24 18:59 06:59 18:59 Output Total 460 50 Balance -460 -50 Output: Drainage 60 50 Lower Back 60 50 Urine 400 Other: Voiding Method Toilet Urinal # Voids 1 # Bowel Movements 1 - Labs CBC & Chem 7: 09/25/24 07:00 09/25/24 07:00 Labs: Abnormal Lab Results - Last 24 Hours (Table) 09/25/24 09/25/24 Range/Units 07:00 07:00 RBC 3.73 L (4.30-5.90) m/uL Hgb 11.1 L (13.0-17.5) gm/dL Hct 33.4 L (39.0-53.0) % Lymphocytes # 0.9 L (1.0-4.8) k/uL Sodium 135 L (137-145) mmol/L Glucose 100 H (74-99) mg/dL
== END 2024-09-25 14:10 | disposition home health service (06) | DRG 427 ==
LOC: 2ORMAIN 11:35 → 4SSUR 21:04
PROVIDERS: ADMIT Orthopaedic Surgery; ATTEND Orthopaedic Surgery
PROC: 0SG30AJ Fusion of Lumbosacral Joint with Interbody Fusion Device, Posterior Approach, Anterior Column, Open Approach (ICD-10-PCS; 2024-09-22)
PROC: 0SP004Z Removal of Internal Fixation Device from Lumbar Vertebral Joint, Open Approach (ICD-10-PCS; 2024-09-22)
PROC: 00NY0ZZ Release Lumbar Spinal Cord, Open Approach (ICD-10-PCS; 2024-09-22)
PROC: 01NB0ZZ Release Lumbar Nerve, Open Approach (ICD-10-PCS; 2024-09-22)
PROC: 0ST40ZZ Resection of Lumbosacral Disc, Open Approach (ICD-10-PCS; 2024-09-22)
PROC: 0ST20ZZ Resection of Lumbar Vertebral Disc, Open Approach (ICD-10-PCS; 2024-09-22)
PROC: 8E0WXBF Computer Assisted Procedure of Trunk Region, With Fluoroscopy (ICD-10-PCS; 2024-09-22)
PROC: 4A11X4G Monitoring of Peripheral Nervous Electrical Activity, Intraoperative, External Approach (ICD-10-PCS; 2024-09-22)
PROC: 0SG3071 Fusion of Lumbosacral Joint with Autologous Tissue Substitute, Posterior Approach, Posterior Column, Open Approach (ICD-10-PCS; 2024-09-22)
PROC: 0SG1071 Fusion of 2 or more Lumbar Vertebral Joints with Autologous Tissue Substitute, Posterior Approach, Posterior Column, Open Approach (ICD-10-PCS; 2024-09-22)
PROC: 0SG00AJ Fusion of Lumbar Vertebral Joint with Interbody Fusion Device, Posterior Approach, Anterior Column, Open Approach (ICD-10-PCS; principal; 2024-09-22 14:00)
DX: T84.226A Displacement of internal fixation device of vertebrae, initial encounter (principal); M96.0 Pseudarthrosis after fusion or arthrodesis; M43.16 Spondylolisthesis, lumbar region; M48.062 Spinal stenosis, lumbar region with neurogenic claudication; M48.07 Spinal stenosis, lumbosacral region; M47.26 Other spondylosis with radiculopathy, lumbar region; M47.27 Other spondylosis with radiculopathy, lumbosacral region; F32.A Depression, unspecified; F41.9 Anxiety disorder, unspecified; Y79.2 Prosthetic and other implants, materials and accessory orthopedic devices associated with adverse incidents; Y83.4 Other reconstructive surgery as the cause of abnormal reaction of the patient, or of later complication, without mention of misadventure at the time of the procedure; Z91.81 History of falling; Z79.899 Other long term (current) drug therapy
CPT/HCPCS: 71045; 72100; 72131; 80048; 83036; 83735; 85025